=== PATIENT | female | born 1940 | race Caucasian/White ===

== ENCOUNTER 2017-08-08 11:52 | Emergency (ER) | payer MEDICARE ==
--- NOTE | 2017-08-08 13:13 | CT ---
BRAIN CT WITHOUT IV CONTRAST: HISTORY: A 77-year-old female with a history of slurred speech, and neck pain, back pain, and upper leg pain f or several days. COMPARISON: 11/09/2016 FINDINGS: There are stable atrophy and chronic white matter ischemic changes and small punctate right cerebella r lacunar infarct changes. No focal mass or midline shift. No intraaxial or extraaxial hemorrhage. IMPRESSION: Stable atrophy and chronic white matter ischemic changes and old lacunar infarct changes. No masses, bleed, or other acute process. POS: [facility]
[2017-08-08 13:14] LABS: #Eosinphils 0.1 thou/uL (0.0-0.7); #Lymphocytes 0.7 thou/uL (1.20-3.40); #Monocytes 0.6 thou/uL (0.11-0.59); #Neutrophils 5.6 thou/uL (1.40-6.50); %Basophils 0.3 % (0.0-1.0); %Eosinophils 1.8 % (0.0-10.0); %Lymphocytes 9.7 % (21.0-51.0); %Neutrophils 80.2 % (42.0-75.0); Hemoglobin 11.8 g/dL (12.0-16.0); Mean Corpuscular HGB CONC 32.7 g/dL (32.0-36.0); Mean Corpuscular Hemoglobin 32.7 pg (27.0-31.0); Mean Corpuscular Volume 99.9 fl (81.0-99.0); Mean Platelet Volume 8.4 fL (7.4-10.4); Platelet Count 196 thou/uL (130-400); RBC Distribution Width 12.1 % (11.5-14.5); Red Blood Cell (RBC) Count 3.59 mill/uL (4.20-5.40)
--- NOTE | 2017-08-08 13:28 | RAD ---
LUMBAR SPINE 2 VIEWS: HISTORY: A 77-year-old female with a history low back pain, neck pain, and leg pain, body aches, mild slurred speech. FINDINGS: AP and cross-table lateral views of the lumbar spine are performed. There are disk-osteophyte change s, particularly involving the proximal lumbar spine. No evidence for acute fracture dislocation. Th ere are some degenerative changes involving the facet joints. No significant malalignment. No new a cute compression fracture of the lumbar spine. Moderate solid fecal material overlies the lumbar spi ne on the AP view, somewhat obscuring it. IMPRESSION: Spondylosis without acute fracture or dislocation. POS: [facility]
--- NOTE | 2017-08-08 13:28 | RAD ---
STANDARD AP AND LATEARL CERVICAL SPINE: HISTORY: Neck pain. COMPARISON: None. FINDINGS: The open-mouth odontoid view is normal. No acute displaced fracture or malalignment. Large, flowing anterior osteophytes. IMPRESSION: 1. No acute fracture or malalignment. 2. Moderate degenerative changes. POS: [facility]
[2017-08-08 13:31] LABS: ALT (SGPT) 23 U/L (8-55); AST (SGOT) 33 U/L (5-34); Albumin 3.8 g/dL (3.4-4.8); Alkaline Phosphatase 94 U/L (40-150); Anion Gap 10 mmol/L (10-20); BUN (Urea Nitrogen) 12 mg/dL (9.8-20.1); Bilirubin, Total 0.4 mg/dL (0.2-1.2); CK (CPK) 97 U/L (29-168); Calc. Creatinine Clearance 0 mL/min (70-130); Calcium 8.9 mg/dL (7.8-10.44); Carbon Dioxide 25 mmol/L (23-31); Chloride 104 mmol/L (98-107); Estimated GFR-MDRD 68; Globulin 2.6 g/dL (2.4-3.5); Glucose 116 mg/dL (83-110); Protein, Total 6.4 g/dL (6.0-8.3); Sodium 135 mmol/L (136-145)
[2017-08-08 13:32] LABS: CKMB 0.9 ng/mL (0-6.6); Troponin I Less than 0.010 ng/mL (< 0.028)
--- NOTE | 2017-08-08 15:03 | CT ---
CT AORTIC DISSECTION PROTOCOL: Date: 08/08/17 HISTORY: Neck, back, and leg pain. COMPARISON: None. TECHNIQUE: CT angiogram of chest and abdomen performed after the intravenous administration of contrast. 3D rend ering is provided. FINDINGS: Thyroid appears relatively unremarkable. The ascending aorta measures 35 mm. The great vessels are pa tent. No evidence of aneurysm or dissection of the thoracic aorta. Proximal iliac arteries are patent. Evidence of prior cardiac bypass surgery. Celiac trunk and superior mesenteric arteries are patent, as well as the renal arteries. Cholelithias is is present. Mild dilatation of right renal pelvis and proximal right ureter and distal right urete r. The ureterovesical junction is not visualized. There are punctate, nonobstructing left renal calculi. Liver, spleen, and adrenal glands are unremarkable. Small epigastric lymph node is present. Normal ro tation of proximal small bowel. There is an old lower thoracic compression fracture. Bones are mildly osteopenic. There is fusion of right L5 transverse process with the sacrum. Grade I anterolisthesis L4 over L5. The lungs are without focal air space consolidation, pneumothorax, or effusion. IMPRESSION: 1. No evidence of aortic dissection, intramural hematoma, or aneurysmal dilatation. 2. Bilateral renal calculi, with incomplete evaluation of the distal ureters as this is an aortic di ssection protocol. There is mild right-sided hydroureteronephrosis. Distal small obstructing calculus cannot be excluded. A dedicated noncontrast CT of the pelvis may be beneficial. 3. Osteopenia with old lower thoracic compression fracture. 4. Cholelithiasis without cholecystitis. POS: [facility]
[2017-08-08] MEDS ORDERED: Morphine 4 MG/ML VIAL ONE (15:27)
[2017-08-08] MEDS ORDERED: ISOVUE-370 76%-LOCM 1 ML ONE (15:41)
--- NOTE | 2017-09-01 14:45 | EKG ---
Test Reason : Blood Pressure : / mmHG Vent. Rate : 082 BPM Atrial Rate : 082 BPM P-R Int : 186 ms QRS Dur : 116 ms QT Int : 342 ms P-R-T Axes : 033 015 186 degrees QTc Int : 399 ms Normal sinus rhythm Left ventricular hypertrophy with QRS widening and repolarization abnormality Abnormal ECG Confirmed by RADHA MALDONADO, GONZALO ([id number]), digital editor LARISSA KOHLI ([id number]) on 09/01/2017 2:45:22 PM Referred By: Confirmed By:GONZALO GARCIA MD
== END 2017-08-08 15:34 | disposition home or self-care (01) ==
LOC: ERS 11:52
DX: G45.9 Transient cerebral ischemic attack, unspecified (principal); M54.2 Cervicalgia; M54.5 Low back pain; M79.651 Pain in right thigh; M34.9 Systemic sclerosis, unspecified; E78.5 Hyperlipidemia, unspecified; M19.90 Unspecified osteoarthritis, unspecified site; Z79.01 Long term (current) use of anticoagulants; Z79.82 Long term (current) use of aspirin; Z79.899 Other long term (current) drug therapy
CPT/HCPCS: 36415; 70450; 71275; 72040; 72100; 80053; 82553; 84484; 85025; 85379; 93005; 96361; 96374; J2270

== ENCOUNTER 2017-08-13 12:42 | Emergency (ER) | payer MEDICARE | END 2017-08-13 13:15 | disposition home or self-care (01) | LOC: SCSER 12:42 | DX: G89.29 Other chronic pain (principal); M54.5 Low back pain; M54.16 Radiculopathy, lumbar region; E78.5 Hyperlipidemia, unspecified; I95.9 Hypotension, unspecified; Z86.73 Personal history of transient ischemic attack (TIA), and cerebral infarction without residual deficits; Z79.899 Other long term (current) drug therapy; Z79.82 Long term (current) use of aspirin | CPT/HCPCS: 99283 ==

== ENCOUNTER 2017-08-23 06:50 | Day surgery (SDC) | payer MEDICARE ==
[2017-08-22 12:31] VITALS: BMI 25.1
[~2017-08-23 06:50] MED LIST: FLU VACC TS2017-18 (>65YR) 0.5 ML SYRINGE IM ONE
[2017-08-23 07:56] VITALS: BP 102/53; TEMP 97.5
--- NOTE | 2017-08-23 09:39 | RAD ---
LUMBAR SPINE MYELOGRAM: Date: 08-23-17 History: Spondylolisthesis and radiculopathy. FINDINGS: Informed consent for lumbar spine myelogram obtained prior to the procedure. Pre-procedural substation operator automatic imaging demonstrates anterior wedge compression deformity of L1, likely chronic in nature. There is anterior osteophyte formation at T12-L1, L1-2, and L2-3. There is multilevel lowe r lumbar spine facet hypertrophic change. Frontal imaging demonstrates lateral osteophyte formation a t L1-2 and a transitional L5 vertebral body which is partially sacralized on the right. Cholelithiasi s noted as well. The patient was placed on the fluoroscopic table in the oblique prone position and skin overlying the lower lumbar spine was prepped and draped in normal sterile fashion. With intermittent fluoroscopic guidance, a 22 gauge spinal needle was advanced into the thecal sac at the L3-4 level and removal of the stylet yields clear cerebral spinal fluid. Subsequently, approximately 12 cc of Isovue 200 was in jected, outline nerve roots of the cauda equina and opacifying the thecal sac. There is a small amoun t of epidural contrast media as well. Patient tolerated the procedure well and was sent to the CT scanner for CT myelogram of the lumbar sp ine. Exposure date: 0.9 minutes of fluoroscopic time, 352.1 mGy*m^2. IMPRESSION: Successful lumbar spine myelogram. CT myelogram lumbar spine to follow. POS: [facility]
--- NOTE | 2017-08-23 09:52 | CT ---
CT MYELOGRAM OF THE LUMBAR SPINE: DATE: 08/23/17. History Radiculopathy and anterolisthesis. TECHNIQUE: Serial axial CT imaging is obtained at 2.5 mm intervals through the lumbar spine with intrathecal con trast media. Coronal and sagittal reformatted imaging obtained. FINDINGS: Increased linear interstitial densities are noted within the imaged lung bases, nonspecific. Numerous small gallstones are noted within the gallbladder lumen. There are multiple subcentimeter n onobstructing stones within both kidneys. There is scattered atherosclerotic calcification of the ab dominal aorta and its branches. There is mild anterolisthesis of L4 on L5 measuring in the 4 mm range. At the T11 level, there is an terior wedge compression fracture with approximately 40% loss of vertebral body height anteriorly, li osmel chronic in nature. Conus medullaris terminates at the T12-L1 level. T12-L1: Mild anterior osteophyte formation and bilateral facet hypertrophy with no central canal or neural foraminal stenosis. L1-2: Minimal disk bulge with no central canal stenosis. Mild bilateral facet hypertrophy with no s ignificant neural foraminal stenosis. L2-3: There is anterior osteophyte formation and minimal disk bulge with no significant central poli l or neural foraminal stenosis. Mild bilateral facet hypertrophy. L3-4: There is mild disk bulge. There is moderate bilateral facet hypertrophy and hypertrophy of th e ligamentum flavum with mild bilateral neural foraminal stenosis and mild central canal stenosis. L4-5: There is moderate bilateral facet hypertrophy with mild to moderate bilateral neural foraminal stenosis. There is mild central canal stenosis. L5-S1: There is bilateral facet hypertrophy with mild bilateral neural foraminal stenosis. No signi ficant central canal stenosis. There is no worrisome lytic or blastic bone lesion. No acute fracture or dislocation. IMPRESSION: 1. Relatively mild degenerative change noted within the lumbar spine, primarily affecting the facet joints of the lower lumbar spine. No evidence for significant central canal stenosis. There is mild central canal stenosis at L3-4. Mild scattered areas of neural foraminal stenosis as detailed above . 2. Cholelithiasis. 3. Bilateral nonobstructing renal calculi. POS: [facility]
[2017-08-23] MEDS ORDERED: Iopamidol-M 200 41% 20 ML VIAL ONE (15:21)
== END 2017-08-23 09:50 | disposition home or self-care (01) ==
LOC: RAD 06:50
PROVIDERS: ATTEND Family Medicine
PROC: B00B1ZZ Plain Radiography of Spinal Cord using Low Osmolar Contrast (ICD-10-PCS; principal; 2017-08-23)
DX: M43.16 Spondylolisthesis, lumbar region (principal); M54.16 Radiculopathy, lumbar region; I25.10 Atherosclerotic heart disease of native coronary artery without angina pectoris; G43.909 Migraine, unspecified, not intractable, without status migrainosus; K21.9 Gastro-esophageal reflux disease without esophagitis; Z91.011 Allergy to milk products; Z88.8 Allergy status to other drugs, medicaments and biological substances; Z74.09 Other reduced mobility; Z79.01 Long term (current) use of anticoagulants; Z79.899 Other long term (current) drug therapy; Z98.890 Other specified postprocedural states
CPT/HCPCS: 62304; 72132

== ENCOUNTER 2018-04-06 14:59 | Observation (INO) | payer MEDICARE ==
[2018-04-06 15:23] LABS: #Lymphocytes 0.5 thou/uL (1.20-3.40); #Monocytes 0.4 thou/uL (0.11-0.59); #Neutrophils 4.5 thou/uL (1.40-6.50); %Basophils 0.6 % (0.0-1.0); %Eosinophils 0.8 % (0.0-10.0); %Lymphocytes 8.3 % (21.0-51.0); %Monocytes 6.9 % (0.0-10.0); %Neutrophils 83.4 % (42.0-75.0); Hemoglobin 12.1 g/dL (12.0-16.0); Mean Corpuscular HGB CONC 33.2 g/dL (32.0-36.0); Mean Corpuscular Volume 96.5 fL (78.0-98.0); Mean Platelet Volume 8.4 fL (7.4-10.4); Platelet Count 168 thou/uL (130-400); Red Blood Cell (RBC) Count 3.78 mill/uL (4.20-5.40); White Blood Cell (WBC) Count 5.4 thou/uL (4.8-10.8)
[2018-04-06 15:32] LABS: Prothrombin Time 39.1 SEC (12.0-14.7)
--- NOTE | 2018-04-06 15:34 | CT ---
NONCONTRAST CT HEAD: Date: 04-06-18 History: Right sided weakness and slurred speech. FINDINGS: Again noted are scattered areas of diminished attenuation of periventricular white matter which are n onspecific but likely attributable to chronic small vessel ischemic changes. Remote lacunar infarct o f the anterior limb right internal capsule is again seen. There is a remote lacunar infarction also a gain seen in the region of the body of the right caudate. No acute cortical infarction, hemorrhage, m ass effect, or midline shift is seen. Small remote infarction in the right cerebellar hemisphere is p resent. There is mild cerebral volume loss. Ventricular system is noted in size, shape, and position for the degree of sulcal atrophy. There has been no significant interval change from prior exam. IMPRESSION: 1. No acute intracranial abnormalities demonstrated. 2. Chronic small vessel ischemic changes and lacunar infarctions as described above. POS: [facility]
[2018-04-06 15:38] LABS: ALT (SGPT) 16 U/L (8-55); AST (SGOT) 27 U/L (5-34); Albumin 4.1 g/dL (3.4-4.8); Alkaline Phosphatase 52 U/L (40-150); Anion Gap 9 mmol/L (10-20); BUN (Urea Nitrogen) 13 mg/dL (9.8-20.1); Bilirubin, Total 0.3 mg/dL (0.2-1.2); CK (CPK) 64 U/L (29-168); Calc. Creatinine Clearance 0 mL/min (70-130); Calcium 9.2 mg/dL (7.8-10.44); Carbon Dioxide 25 mmol/L (23-31); Chloride 104 mmol/L (98-107); Estimated GFR-MDRD 65; Globulin 2.5 g/dL (2.4-3.5); Glucose 117 mg/dL (83-110); Potassium 3.8 mmol/L (3.5-5.1); Protein, Total 6.6 g/dL (6.0-8.3); Sodium 134 mmol/L (136-145)
[2018-04-06 15:41] LABS: CKMB 0.9 ng/mL (0-6.6)
--- NOTE | 2018-04-06 15:55 | CT ---
HEAD CTA WITH 3D RENDERING NECK CTA WITH 3D RENDERING: Date: 04/06/18 HISTORY: 77-year-old female, stroke alert, right-sided weakness and slurred speech. FINDINGS: HEAD CTA: The right vertebral artery is a somewhat dominant vertebral artery. The basilar artery and posterior cerebral arteries appear unremarkable. There are some calcified plaques in the right and left intracr anial internal carotid arteries, but without significant stenosis, using NASCET criteria. The middle cerebral arteries demonstrate no evidence for significant stenosis. Anterior cerebral arteries appear unremarkable. IMPRESSION: Some atherosclerotic calcific changes within the intracranial internal carotid arteries without evide nce for hemodynamically significant stenosis. Right and left middle cerebral arteries show no evidenc e for significant stenosis. NECK CTA: There is a fairly large calcified plaque at the origin of the right subclavian artery, with some mild to moderate narrowing, as well as some minimal kinking at this level. This does not appear to repres ent a significant high grade stenosis per NASCET criteria. The origins of the right and left vertebra l arteries appear unremarkable. The right vertebral artery is a dominant vertebral artery. Common, in ternal, and external carotid arteries demonstrate no evidence for significant plaque or hemodynamical ly significant stenosis. IMPRESSION: No carotid hemodynamically significant stenosis. Mild to moderate stenosis at a large calcified plaqu e at the origin of the right subclavian artery using NASCET criteria. Findings discussed with Dr. Holder at 1535 hours. CODE CR. POS: [facility]
--- NOTE | 2018-04-06 16:19 | RAD ---
SINGLE VIEW OF THE CHEST: Comparison: 11-09-16 History: Dysarthria, slurred speech. FINDINGS: Single view of the chest shows a normal sized cardiomediastinal silhouette with atherosclerotic calci fications in the aorta. The patient is status post sternotomy. Increased interstitial markings are pr esent. There is no evidence of consolidation, mass, or pleural effusion. IMPRESSION: No evidence of acute cardiopulmonary disease. POS: [facility]
[2018-04-06] MEDS ORDERED: ISOVUE-370 76%-LOCM 1 ML ONE (16:22)
[2018-04-06] MEDS ORDERED: Acetaminophen 500 MG TAB ONE (20:48)
[2018-04-06] MEDS ORDERED: Acetaminophen 325 MG TAB PO PRN (21:32)
[2018-04-06] MEDS ORDERED: Famotidine 20 MG TAB PO SCH (21:32)
[2018-04-06] MEDS ORDERED: Digoxin 0.125 MG TAB PO SCH (22:00)
[2018-04-06] MEDS: Digoxin 0.125 MG TAB PO SCH (23:20)
[2018-04-07 00:30] VITALS: BMI 24.3
--- NOTE | 2018-04-07 02:01 | HP ---
PRIMARY CARE PHYSICIAN: Dr. Swati Nolan. CHIEF COMPLAINT: Both legs giving out on her and arms not acting right. HISTORY OF PRESENT ILLNESS: Ms. King is a very pleasant 77-year-old female that has a history of s cleroderma as well as pulmonary fibrosis. She also has an aortic valve replacement. She was in her usual state of health until earlier today. She says that she was folding laundry when suddenly her l egs got extremely weak like they could not hold her up and she says her arms felt weak and pus, they did not do what she wanted them to do. She says that this lasted for several hours and then her voic e also got weak and her voice was slurred. She says the problems with her voice and slurred speech l asted much longer. She says she was worried about this particular episode because before it was prim arily her legs getting weak, but this time the voice was affected too. She also was having some diff iculty with feeling some cough and congestion, but she associates that with her being sick. She was also concerned because these episodes, which she calls TIAs have become more frequent. Usual ly, she would only have one year or so, but lately she has had an episode in May, June, July , August, and October. They seem to be becoming more frequent. She denies having any chest pain or shor tness of breath, but she did admit to feeling some palpitations or she calls hard heartbeats a few da ys ago, which she stated was unusual. Currently, the patient is back to her normal self and denies a ny current weakness or symptoms at this time. REVIEW OF SYSTEMS: With regard to the review of systems, all systems were reviewed and are negative except for that mentioned in history of present illness. PAST MEDICAL HISTORY: Significant for scleroderma as well as pulmonary fibrosis, gastroesophageal re flux disease, osteoarthritis, coronary artery disease, previous TIA. She also says she had a blood i nfection. It sounds like bacteremia due to Strep bovis and Strep was sounds like Pasteurella this wa s about 5 years ago. She says she did not have endocarditis that she is aware of. PAST SURGICAL HISTORY: She has had an appendectomy in the 1940s, hysterectomy in the , and the aortic valve replacement with a mechanical valve in 1999, bilateral cataract surgery. ALLERGIES: CRESTOR, ZETIA and DAIRY and SOY. SOCIAL HISTORY: She is . She is a nonsmoker, nondrinker and she would like to be a FULL CODE . FAMILY HISTORY: Significant for cerebrovascular accident in her grandfather as well as cancer and ma cular degeneration. CURRENT MEDICATIONS: These are taken from the emergency room records and these include citalopram 20 mg daily, Coumadin 5 mg daily, digoxin 0.125 mcg twice a day, fenofibrate 48 mg daily, pravastatin 2 0 mg a day, cyclobenzaprine 10 mg as needed, Nexium 40 mg daily, metoprolol extended-release 25 mg t wice a day, and Nitro-Dur 0.3 mg daily. PHYSICAL EXAMINATION: GENERAL: She is alert and oriented. She appears to be in no acute distress. She is well developed and well nourished. VITAL SIGNS: Blood pressure was 133/58, heart rate 91, respiratory rate of 18, temperature was 98.1. HEENT: Pupils are equal, round, and reactive. Extraocular muscles are intact. Her sclerae anicteri c. Tympanic membranes in the ear exam, the external canal was normal on both sides; however, on the right, she had a perforated eardrum on the left. The tympanic membrane was intact. There was no spe cific lesions, no redness. Throat: There is no erythema, no exudates. The uvula is midline. NECK: She did have some thickening of the skin around the neck. There was no evidence of any bruits . LUNGS: Clear to auscultation except for some dry crackles at the base of the left seem to be greater than the right and a mild expiratory wheeze, no rhonchi. CARDIOVASCULAR: She had a normal S1 and S2. I did not appreciate any S3 or S4. No murmurs; however , she did have the sound of the clicking of the mechanical valve. ABDOMEN: Soft, it is nontender, nondistended. Positive for bowel sounds. There is no rebound, no g uarding. EXTREMITIES: She has slight edema in the left lower leg as compared to the right, but there is no ca lf tenderness. No palpable cord. She has palpable dorsalis pedis pulses bilaterally. NEUROLOGIC: Her cranial nerves II through XII are grossly intact. Her muscle strength is 5/5 in bot h her upper and lower extremities. Reflexes were reactive and symmetric. SKIN AND INTEGUMENT: She did have the lack of the skin folds at the nail bed on her hands bilaterall y. There was no pitting at the nail bases, however. No ulcerative lesions on her feet. Her dorsali s pedis pulses were palpable, and there was no significant rash. No oral lesions and no evidence of any alopecia. LABORATORY RESULTS: White blood cell count 5.4, hemoglobin 12.1, hematocrit is 36.5, platelet count is 168. INR was 4.0. Sodium 134, potassium 3.8, chloride is 104, CO2 is 25, BUN of 13, creatinine 0 .85, glucose is 117. Troponin was 0.020. She had a CT scan of the brain which was negative for any acute intracranial process. There was some chronic small vessel disease noted. She had a chest x-ra y, which was read by me it looks like, her heart size was normal. There was some evidence of some in terstitial infiltrates. Her EKG is sinus rhythm, the rate is 91. She did have some voltage criteria for LVH and what appears to be some repolarization abnormalities in lead 1, 2, V5, and V6. This is by my reading. The serum sodium is 134, potassium 3.8, chloride is 104, CO2 is 25, BUN of 13, creati nine 0.85, glucose is 117. White blood cell count 5.4, hemoglobin 12.1, hematocrit is 36.5, platelet count is [address] angiogram of the brain and [place] of [place]. Notably, there was no ca rotid artery stenosis, but there was significant plaque and stenosis at the right subclavian artery. ASSESSMENT AND PLAN: This is a pleasant 77-year-old female that presents with sudden onset of neurol ogical symptoms while she was folding clothes. She also has history of having recurrent transient is chemic attacks, which she says seems to be becoming more frequent. For this reason, she will be plac ed in observation, given her findings on the CT angiogram with regards to the subclavian stenosis. W devan will have Vascular Surgery to evaluate her to see if this could be producing a subclavian steal-lik e syndrome. We will also get carotid Dopplers to see if she has any retrograde flow in the carotids or vertebral arteries. We will also check lipid panel and monitor her for signs of atrial fibrillati on and get an echocardiogram. 1. With regards to her scleroderma, this will be treated symptomatically. She appears to have evelin l renal function and it appears as if the pulmonary fibrosis is stable. 2. Aortic valve replacement and chronic anticoagulation. Her INR is a slightly supratherapeutic. W e will monitor INRs, we will hold the Coumadin for this evening to see where her INR is tomorrow and treat accordingly. Otherwise, further recommendations are to follow.
[2018-04-07 05:13] LABS: INR-International Normal Ratio 3.5
[2018-04-07 05:31] LABS: Anion Gap 11 mmol/L (10-20); BUN (Urea Nitrogen) 13 mg/dL (9.8-20.1); Calc. Creatinine Clearance 60 mL/min (70-130); Calcium 9.1 mg/dL (7.8-10.44); Carbon Dioxide 24 mmol/L (23-31); Cardiac Risk 2.8 (Less than 4.5); Chloride 109 mmol/L (98-107); Cholesterol 142 mg/dl (< 200 Desired); Estimated GFR-MDRD 73; Glucose 96 mg/dL (83-110); HDL Cholesterol 50 mg/dL (>60 Neg Risk); LDL Cholesterol, Calculated 73 mg/dL; Potassium 3.6 mmol/L (3.5-5.1); Sodium 140 mmol/L (136-145); Triglycerides 94 mg/dL (Less than 150)
[2018-04-07 05:48] LABS: Band 8 % (5-11); Eosinophils 1 % (0-10); Hemoglobin 12.1 g/dL (12.0-16.0); Lymphocytes 24 % (21-51); MDiff Complete? YES; Mean Corpuscular HGB CONC 32.7 g/dL (32.0-36.0); Mean Corpuscular Hemoglobin 31.8 pg (27.0-31.0); Mean Platelet Volume 8.8 fL (7.4-10.4); Monocytes 10 % (0-10); Neutrophil 57 % (42-75); Platelet Count 162 thou/uL (130-400); Red Blood Cell (RBC) Count 3.83 mill/uL (4.20-5.40); White Blood Cell (WBC) Count 2.7 thou/uL (4.8-10.8)
--- NOTE | 2018-04-07 08:22 | ULT ---
CAROTID DOPPLER ULTRASOUND: Date: 04/07/18 HISTORY: TIA. COMPARISON: Ultrasound from 2017. TECHNIQUE: Real-time Pro scale, color Doppler, and spectral analysis of the extracranial carotid and vertebral arteries performed. FINDINGS: Minimal calcific plaque. No elevated peak systolic velocities within the internal carotid arteries. A ntegrade flow both vertebral arteries. Right ICA/CCA ratio is 0.70. Left ICA?CCA ratio is 0.70. IMPRESSION: No hemodynamically significant stenosis. POS: [facility]
[2018-04-07] MEDS ORDERED: Aspirin 81 mg Enteric Coated Tablet PO SCH (09:00)
[2018-04-07] MEDS ORDERED: Famotidine 20 MG TAB PO SCH (09:00)
[2018-04-07] MEDS: Digoxin 0.125 MG TAB PO SCH (09:40)
--- NOTE | 2018-04-07 10:19 | CON ---
DATE OF CONSULTATION: 04/07/2018 CONSULTING PHYSICIAN: Hospitalist Service. IMPRESSION: Generalized weakness suggestive more of either hypotensive or bradycardic episode. PLAN: 1. Monitor orthostatic blood pressures. 2. Consider referral to Cardiology for a prolonged EKG monitoring. Ms. King is a 77-year-old white female with a past history of aortic valve replacement, on chronic Coumadin therapy. She was at home when she began feeling generally weak on both sides. There was no facial droop, but she reported that it felt like her speech was a bit slurred. There is no associat ed headache, nausea, vomiting, vertigo, chest pain, palpitations, or shortness of breath. They murray d for EMS to bring her into the hospital. After lying down, she could not tell whether there was any residual weakness. Her son is indeterminate how long she had symptoms. She had a CT scan of the br ain done, which was unremarkable for any evidence of hemorrhage. There is some chronic small vessel ischemic changes present. CTA did not show any significant stenosis in either the carotids or intrac ranial vessels. She has had a carotid ultrasound, which again showed no carotid stenosis. Since adm ission, she has not had any further episodes. She had a blood pressure 122/56 and pulse of 75. She reports that she was recently started on blood pressure medication, which was a new problem for her. PAST MEDICAL HISTORY: Scleroderma, macular degeneration, aortic valve disease. MEDICATION LIST: Included Coumadin and Lanoxin. She has been started on aspirin. SOCIAL HISTORY: No tobacco or alcohol use. FAMILY HISTORY: Noncontributory. REVIEW OF SYSTEMS: No complaints of any focal neurologic symptoms. PHYSICAL EXAMINATION: GENERAL: She is a petite, frail, elderly lady. VITAL SIGNS: Blood pressure 122/56, pulse 75, respirations 14, temperature 98.3. HEENT: Pupils equal and reactive. Conjunctivae clear. Oropharynx clear. NECK: Supple, no lymphadenopathy. EXTREMITIES: No cyanosis, clubbing, or edema. NEUROLOGIC EXAM: She is alert and appropriate. Her speech is fluent and clear. Cranial nerves II-X II are intact. Motor exam showed symmetric strength that was full bilaterally. She could stand and walk independently. Her sensation was intact to light touch. Reflexes were 2+ and symmetric. No tr emor or dysmetria was present. EKG shows a sinus rhythm. SUMMARY: This is an elderly lady, who had some generalized weakness. She is already anticoagulated. I doubt that her symptoms are related to an ischemic event. Her INR is 4.0. Therefore, she is ful ly therapeutic. I do not see any suggestive evidence of a stroke. Monitor blood pressure and pulse to see if there may be an underlying cardiovascular cause for this episode.
--- NOTE | 2018-04-07 12:24 | PDOC.PN ---
- Subjective Encounter Start Date: 04/07/18 Encounter Start Time: 10:10 Ms. King was seen today in follow-up of sudden generalized weakness. She says that she feels "great" today. She denies any weakness. Her speech is back to normal. - Objective Resuscitation Status: Resuscitation Status FULL:Full Resuscitation MAR Reviewed: Yes Vital Signs & Weight: Vital Signs (12 hours) Temp Pulse Resp BP Pulse Ox 04/07/18 12:00 97.6 F 93 16 140/62 94 L 04/07/18 09:40 96 04/07/18 08:00 97.5 F L 92 18 147/67 H 98 04/07/18 03:18 98.3 F 75 14 122/56 L Weight Weight 137 lb Result Diagrams: 04/07/18 04:26 04/07/18 04:26 Additional Labs: Accuchecks 04/06/18 15:03 POC Glucose 116 H Phys Exam - Physical Examination HEENT: PERRLA Respiratory: no wheezing, no rales, no rhonchi, clear to auscultation bilateral Cardiovascular: RRR, no significant murmur, no rub Gastrointestinal: soft, non-tender, no distention, positive bowel sounds Musculoskeletal: pulses present, edema present trace pedal edema around both ankles Neurological: non-focal, normal sensation, moves all 4 limbs Dx/Plan (1) Generalized weakness Code(s): R53.1 - WEAKNESS Status: Acute (2) Scleroderma Code(s): M34.9 - SYSTEMIC SCLEROSIS, UNSPECIFIED Status: Chronic (3) Chronic anticoagulation Code(s): Z79.01 - NURSING HOME (CURRENT) USE OF ANTICOAGULANTS Status: Chronic (4) History of aortic valve replacement Code(s): Z95.2 - PRESENCE OF PROSTHETIC HEART VALVE Status: Chronic - Plan * Generalized weakness and slurred speech. ? etiology, discussed with Dr. Rao. This could be due to a hypotensive event from the recent start of an antihypertensive medication- will check Orthostatics * Subclavian Stenosis- CV surgery consult noted- this is not contributing to her present condition- and will not require any further work-up/ treatment * Scleroderma- stable * Home later If Echo is unchanged.
[2018-04-07 16:16] VITALS: BP 128/60; TEMP 98.2
[2018-04-07] MEDS ORDERED: Warfarin Sodium 5 MG TAB PO SCH (17:00)
--- NOTE | 2018-04-07 23:20 | CON ---
DATE OF CONSULTATION: 04/07/2018 REQUESTING PHYSICIAN: Reddy Mendez M.D. CHIEF COMPLAINT: Dysarthria. HISTORY OF PRESENT ILLNESS: The patient is a 77-year-old woman who is on Coumadin because of mechani elizabeth valve replacement. She apparently has had several episodes of dysarthria that she describes as " thick tongued speech," but she presented this hospitalization with an episode that was associated wit h generalized weakness. Different examiners have gotten different descriptions of her weakness, one describing left-sided weakness, one describing right-sided weakness. To me, she described that both legs and then both arms became weak and that family and her equipment technician had to help her because she w as just simply too weak to stand up. That dysarthria lasted for a few hours and when I saw her this morning, she was back to normal. She denies any eye symptoms or any lateralizing extremity symptoms. PAST MEDICAL HISTORY: Also significant for scleroderma with pulmonary fibrosis and GE reflux disease . PAST SURGICAL HISTORY: She has had an appendectomy, a hysterectomy, a mechanical aortic valve replac ement and a cataract surgery. HOME MEDICATIONS: Citalopram, Coumadin, digoxin, fenofibrate, pravastatin, cyclobenzaprine, Nexium, Toprol XL. ALLERGIES: She reports allergies or intolerances to CRESTOR, ZETIA, DAIRY and SOY. SOCIAL HISTORY: The patient does not smoke. FAMILY HISTORY: Significant for one of her grandfathers having had a stroke. REVIEW OF SYSTEMS: Negative for any TIA symptoms other than the aforementioned dysarthria, is negati ve for any palpitations. PHYSICAL EXAMINATION: GENERAL: She appears her stated age, is comfortable, is awake and alert and appropriate. VITAL SIGNS: She stands 5 feet 3 inches, weighs 137 pounds, heart rate is 92, blood pressure 147/67, temperature is 97.5, room air O2 sats are 98%. EXTREMITIES: She has a palpable and symmetric radial, dorsalis pedis and posterior tibial pulses. NEUROLOGIC: Cranial nerves II-XII are grossly intact as is upper and lower extremity strength. DIAGNOSTIC DATA: Her chest x-ray shows sternal wires and aortic knob calcification. Laboratory exam shows a white count of 5.4, hemoglobin 12.1, platelets 168,000. PT was 39.1 with an INR of 4.0. Th is morning, the INR is down to 3.5. Electrolytes were normal except for minimally low sodium at 134. Glucose is 117, BUN 13, creatinine 0.85, calcium is 9.2. LFTs were normal. Albumin is 4.1. CT sc anning of the brain showed some lacunar infarcts and small vessel disease, but no acute changes. CTA of the brain and cervical carotids showed nearly pristine, but tortuous carotids with some calcified plaque at the origin of the right subclavian artery without any significant obstruction. Carotid ul trasonography showed minimal plaque in the carotids with normal velocities and ratios. Normal wavefo adelfo. ASSESSMENT AND PLAN: Left hemispheric transient ischemic attack with normal thoracic and cervical ca rotids. I do not think that the plaque in her right subclavian artery is anything other than a coinc idental finding and certainly is not responsible for these symptoms.
--- NOTE | 2018-04-08 03:37 | DIS ---
PRIMARY CARE PHYSICIAN: Dr. Nolan. DATE OF ADMISSION: 04/06/2018 DATE OF DISCHARGE: 04/07/2018 DISCHARGE DISPOSITION: Home. PRIMARY DISCHARGE DIAGNOSES: 1. Sudden generalized weakness. 2. Scleroderma. 3. Status post aortic valve replacement. 4. Chronic anticoagulation. 5. Coronary artery disease. 6. Gastroesophageal reflux disease. DISCHARGE MEDICATIONS: These are the same as on admission and include Coumadin 5 mg daily, pravastat in 20 mg at bedtime, multivitamin once a day, metoprolol succinate 12.5 mg twice a day, fenofibrate 4 8 mg daily, estazolam 1 mg at bedtime, Nexium 40 mg daily, digoxin 125 mcg twice a day, Flexeril 10 m g t.i.d. as needed, Celexa 20 mg daily, vitamin D3 of 1000 units daily, calcium carbonate 1200 mg shamir ly, aspirin 81 mg a day. PROCEDURES DONE DURING ADMISSION: The patient had a CT scan of the brain, which was negative for any acute intracranial abnormalities. There were some chronic small vessel ischemic changes and lacunar infarcts as described. The patient had a CT angiogram of the [place] and of the neck. The re was no carotid stenosis. There was some mild to moderate stenosis and a large calcified plaque at the origin of the subclavian artery. The patient had bilateral carotid Dopplers, which was negative . The patient had an echocardiogram, which was pending at the time of discharge. ALLERGIES: MILK CONTAINING PRODUCTS, CRESTOR and ZETIA. HOSPITAL COURSE: Ms. King is a pleasant 77-year-old female, who presented to the emergency room af ter having a sudden onset of weakness in both upper and lower extremities as well as some slurred spe ech. She said this is very similar to previous TIAs, which she has had in the past with the exceptio n of the extremity weakness. However, her , who came later to the hospital, says that the ext remity weakness is a characteristic of her previous TIAs. She was placed in observation and she unde rwent carotid Doppler which was negative and showed anterior grade flow in the vertebral arteries. V ascular Surgery was consulted due to the stenosis of the subclavian artery. This was felt to not req uire any further investigation or treatment. She was also seen by her neurologist and her symptoms d id not seem consistent with a TIA in his opinion and felt that it could be some type of cardiac media katrin event. I discussed this with the patient and offered to have her stay over one more night to see the dough molder hand; however, she felt like she preferred to see her primary dough molder hand, Dr. San, wh o was not bone char puller this weekend and will call her office on Tuesday and follow up with the echo report as well as any additional cardiac workup if necessary. Since no significant abnormalities were found during this hospital stay, we will continue her on her same medications with no changes.
== END 2018-04-07 17:20 | disposition home or self-care (01) ==
LOC: ERS 14:59 → ERHOLD 17:44 → 2SE 21:17
PROVIDERS: ADMIT Internal Medicine; ATTEND Internal Medicine
DX: R53.1 Weakness (principal); R47.1 Dysarthria and anarthria; M34.9 Systemic sclerosis, unspecified; J84.10 Pulmonary fibrosis, unspecified; K21.9 Gastro-esophageal reflux disease without esophagitis; M19.90 Unspecified osteoarthritis, unspecified site; I25.10 Atherosclerotic heart disease of native coronary artery without angina pectoris; R79.1 Abnormal coagulation profile; Z86.73 Personal history of transient ischemic attack (TIA), and cerebral infarction without residual deficits; Z79.01 Long term (current) use of anticoagulants; Z79.899 Other long term (current) drug therapy; Z88.8 Allergy status to other drugs, medicaments and biological substances; Z91.011 Allergy to milk products; Z91.018 Allergy to other foods; Z95.2 Presence of prosthetic heart valve
CPT/HCPCS: 70450; 70496; 70498; 71045; 80048; 80053; 80061; 82550; 82553; 82962; 84484; 85025 ×2; 85610 ×2; 85730; 93005; 93306; 93880; 99285; G0378 ×2; 36415; 36416

== ENCOUNTER 2019-01-25 12:24 | Day surgery (SDC) | payer MEDICARE, OTHER ==
[2019-01-24 14:33] VITALS: BMI 24.3
[~2019-01-25 12:24] MED LIST changes: +Dexamethasone 20 MG/5 ML VIAL ONE; -FLU VACC TS2017-18 (>65YR) 0.5 ML SYRINGE IM ONE; +Lidocaine 1% PF 5 ML VIAL ONE; +Metoclopramide HCl 10 MG/2 ML VIAL ONE; +Ondansetron PF 4 MG/2 ML Vial ONE; +PROPOFOL 200 MG/20 ML VIAL ONE
[2019-01-25] MEDS ORDERED: Oxymetazoline HCl 0.05% ( 15 ML ) ONE (14:17)
[2019-01-25 14:27] LABS: Hemoglobin 12.8 g/dL (12.0-16.0); Mean Corpuscular HGB CONC 34.6 g/dL (32.0-36.0); Mean Corpuscular Hemoglobin 33.8 pg (27.0-31.0); Mean Corpuscular Volume 97.5 fL (78.0-98.0); Mean Platelet Volume 8.7 fL (7.4-10.4); Platelet Count 158 thou/uL (130-400); RBC Distribution Width 11.6 % (11.5-14.5); Red Blood Cell (RBC) Count 3.79 mill/uL (4.20-5.40); White Blood Cell (WBC) Count 4.8 thou/uL (4.8-10.8)
[2019-01-25 14:36] LABS: INR-International Normal Ratio 1.2; PTT 42.2 SEC (22.9-36.1); Prothrombin Time 14.7 SEC (12.0-14.7)
[2019-01-25 14:48] LABS: Anion Gap 12 mmol/L (10-20); BUN (Urea Nitrogen) 18 mg/dL (9.8-20.1); Calc. Creatinine Clearance 46 mL/min (70-130); Calcium 9.2 mg/dL (7.8-10.44); Carbon Dioxide 26 mmol/L (23-31); Chloride 106 mmol/L (98-107); Estimated GFR-MDRD 54; Glucose 94 mg/dL (83-110); Sodium 140 mmol/L (136-145)
[2019-01-25] MEDS ORDERED: Lidocaine 1% w/Epinephrine 1:100K 20 ML VIAL ONE (16:51)
[2019-01-25] MEDS ORDERED: Bacitracin Zinc Ointment 30 gm TUBE ONE (16:51)
[2019-01-25] MEDS ORDERED: Famotidine/PF 20 mg/2ml Vial ONE (17:25)
[2019-01-25] MEDS ORDERED: Fentanyl 100 MCG/2 ML VIAL ONE (17:25)
--- NOTE | 2019-01-26 08:27 | OP ---
DATE OF PROCEDURE: 01/25/2019 PREOPERATIVE DIAGNOSES: Profound septal deformity, hypertrophic inferior turbinates. POSTOPERATIVE DIAGNOSES: Profound septal deformity, hypertrophic inferior turbinates. PROCEDURES PERFORMED: 1. Septoplasty. 2. Bilateral nasal endoscopy with submucosal resection of inferior turbinates. DESCRIPTION OF OPERATION: After consent was obtained, the patient was identified, brought to the operating room, and placed on the operating room table in the supine position. Consent was obtained, notifying the patient of the possibility of additional infections, bleeding, brain injury, and eye/orbital injury. The patient was placed on the operating room table, and general endotracheal anesthesia and intravenous access was obtained. The patient was then positioned, prepped and draped for endoscopic sinus surgery. Nasal preparation included trimming nasal vestibular hairs and spraying in topical Afrin. We then placed Afrin topical solution on nasal pledgets and strategically located them intranasally. The perinasal mucosa was injected with 1% lidocaine with 1:100,000 epinephrine in the submucoperichondrial plane of the septum, lateral nasal wall, and anterior to the uncinate. The patient was then prepped and draped in a sterile fashion and positioned for endoscopic sinus surgery. SEPTOPLASTY: After local anesthesia was infiltrated into the submucoperichondrial plane, a standard Joshua incision was made with a #15 blade down to the level of the septal cartilage. The caudal elevator was used to elevate the mucoperichondrium from the underlying cartilage. We then proceeded beyond the bony cartilaginous junction and elevated the bony periosteum as well. Great attention was paid to the spur to prevent rent formation in the septal flap. A transcartilaginous incision was then made, while preserving an adequate dorsal and caudal cartilaginous strut for tip support. The deformed cartilage was removed and disarticulated from the bony cartilaginous junction and maxillary crest. This was placed in saline and would later be crushed and returned to the mucoperichondrial envelope. We then elevated the contralateral periosteum from the bony cartilaginous region and removed the deformed portions of the bone and bony spurs. The cartilage was then crushed and placed back into the mucoperichondrial envelope and the mucosa was re-approximated with a quilting stitch composed of rapidly absorbent gut suture. The Joshua incision was also closed with interrupted gut suture. At the completion of the case, Heard splints were placed and suture secured to the caudal septum. BILATERAL NASAL ENDOSCOPY WITH SUBMUCOSAL RESECTION OF INFERIOR TURBINATES: With the 0-degree endoscope, the patient underwent systematic nasal endoscopy. There were no suspicious internasal masses or lesions identified. We then focused our attention to the osteomeatal complex region under the middle turbinate. The inferior turbinates were visualized with a 0 degree endoscope and outfractured with a [place] elevator. The inferior medial aspect was cauterized with the electrocautery. Hemostasis was obtained . After adequate airway was established, we turned our attention to the contralateral side and used a similar procedure. Again, a [place] elevator was used to outfracture inferior turbinates under endoscopic visualization. With a suction cautery, the free inferior medial aspect was cauterized under direct visualization along the length of the inferior turbinate. At this point, we then turned our attention to the contralateral side and proceeded with endoscopic sinus surgery. At the completion of the case, [place] keel splints were placed in the ethmoid cavities after the ethmoidectomy. There were no complications. The patient tolerated the procedure well and was discharged to the recovery room in stable condition prior to return to the preoperative day stay with ultimate discharge home. Prescriptions for pain medication and antibiotics were provided. The patient received intramuscular Depo-Medrol during the case. Job ID: [id number]
== END 2019-01-25 20:35 | disposition home or self-care (01) ==
LOC: SDC 12:24
PROVIDERS: ATTEND Specialist
PROC: 09BM4ZZ Excision of Nasal Septum, Percutaneous Endoscopic Approach (ICD-10-PCS; principal; 2019-01-25)
PROC: 09TL8ZZ Resection of Nasal Turbinate, Via Natural or Artificial Opening Endoscopic (ICD-10-PCS; 2019-01-25)
DX: J34.2 Deviated nasal septum (principal); J34.3 Hypertrophy of nasal turbinates; K21.9 Gastro-esophageal reflux disease without esophagitis; F33.42 Major depressive disorder, recurrent, in full remission; G47.00 Insomnia, unspecified; I25.10 Atherosclerotic heart disease of native coronary artery without angina pectoris; G25.0 Essential tremor; Z79.01 Long term (current) use of anticoagulants; Z79.899 Other long term (current) drug therapy; Z88.8 Allergy status to other drugs, medicaments and biological substances; Z91.011 Allergy to milk products; Z95.2 Presence of prosthetic heart valve
CPT/HCPCS: 36415; 80048; 85027; 85610; 85730; 93005; 93010; J1100; J2001; J2405; J2704; J2765; J3010; S0028

== ENCOUNTER 2019-01-27 09:48 | Day surgery (SDC) | payer MEDICARE, OTHER ==
[~2019-01-27 09:48] MED LIST changes: -Dexamethasone 20 MG/5 ML VIAL ONE; +EPINEPHrine 1 MG/10 ML Abboject SYRINGE ONE; -Metoclopramide HCl 10 MG/2 ML VIAL ONE; -Ondansetron PF 4 MG/2 ML Vial ONE; +PHENYLEPHRINE-NS 100 MCG/ML 10 ML SYRINGE ONE; +Rocuronium Bromide 10 MG/ML (10ML VIAL) ONE; +Succinylcholine Chloride 20 MG/ML 10 ml SYRINGE FS ONE; +ePHEDrine 50 MG/ML VIAL ONE
[2019-01-27 10:55] LABS: #Lymphocytes 0.8 thou/uL (1.20-3.40); #Monocytes 0.3 thou/uL (0.11-0.59); #Neutrophils 5.9 thou/uL (1.40-6.50); %Basophils 0.2 % (0.0-1.0); %Eosinophils 0.2 % (0.0-10.0); %Lymphocytes 10.8 % (21.0-51.0); %Monocytes 4.6 % (0.0-10.0); %Neutrophils 84.2 % (42.0-75.0); Hemoglobin 8.1 g/dL (12.0-16.0); Mean Corpuscular HGB CONC 34.6 g/dL (32.0-36.0); Mean Corpuscular Hemoglobin 34.5 pg (27.0-31.0); Mean Corpuscular Volume 99.7 fL (78.0-98.0); Mean Platelet Volume 8.6 fL (7.4-10.4); Platelet Count 135 thou/uL (130-400); Red Blood Cell (RBC) Count 2.33 mill/uL (4.20-5.40)
[2019-01-27 11:48] LABS: INR-International Normal Ratio 1.8
[2019-01-27] MEDS ORDERED: Tranexamic Acid 1,000 MG/10 ML VIAL ONE (11:58)
[2019-01-27 12:03] LABS: ALT (SGPT) 35 U/L (8-55); AST (SGOT) 43 U/L (5-34); Albumin 3.7 g/dL (3.4-4.8); Alkaline Phosphatase 38 U/L (40-150); Anion Gap 10 mmol/L (10-20); BUN (Urea Nitrogen) 19 mg/dL (9.8-20.1); Bilirubin, Total 0.3 mg/dL (0.2-1.2); Calc. Creatinine Clearance 0 mL/min (70-130); Calcium 8.6 mg/dL (7.8-10.44); Carbon Dioxide 25 mmol/L (23-31); Chloride 109 mmol/L (98-107); Estimated GFR-MDRD 70; Globulin 1.9 g/dL (2.4-3.5); Glucose 114 mg/dL (83-110); Protein, Total 5.6 g/dL (6.0-8.3); Sodium 140 mmol/L (136-145)
[2019-01-27] MEDS ORDERED: Oxymetazoline HCl 0.05% ( 15 ML ) NASAL SCH (12:15)
[2019-01-27] MEDS ORDERED: ADMIXTURE FEE IV SCH (13:00)
[2019-01-27] MEDS ORDERED: HUMAN PROTHROMBIN COMPLX IV SCH (13:00)
[2019-01-27] MEDS ORDERED: Phytonadione 10 MG/ML AMP SLOW IVP SCH (13:00)
[2019-01-27] MEDS ORDERED: Phytonadione 10 MG/ML AMP ONE (13:12)
[2019-01-27 14:41] LABS: INR-International Normal Ratio 1.2; Prothrombin Time 14.9 SEC (12.0-14.7)
[2019-01-27] MEDS ORDERED: Ondansetron PF 4 MG/2 ML Vial ONE (15:26)
[2019-01-27] MEDS ORDERED: Morphine 2 MG/ML SYRINGE ONE (15:26)
[2019-01-27] MEDS ORDERED: Fentanyl 100 MCG/2 ML VIAL ONE (16:05)
[2019-01-27] MEDS ORDERED: EPINEPHrine 1 MG/ML AMP ONE ×4 (16:14→16:34)
[2019-01-27 19:02] LABS: Hemoglobin 9.1 g/dL (12.0-16.0)
--- NOTE | 2019-01-28 18:39 | OP ---
DATE OF PROCEDURE: 01/27/2019 PREOPERATIVE DIAGNOSES: 1. Epistaxis following nasal surgery. 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 POSTOPERATIVE DIAGNOSES: 1. Epistaxis following nasal surgery. 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 PROCEDURE PERFORMED: Nasal endoscopy with control of epistaxis. PATHOLOGY TEACHER: None. ANESTHESIA: General endotracheal anesthetic. ESTIMATED BLOOD LOSS: The patient only had about 20 mL of blood loss during the case, but there was significant amount of clot removed from the pharynx as well as blood-filled stomach contents removed within NG tube. IV FLUIDS: 500 mL. She also received completion of her unit of blood that she was had hanging from the ER. COMPLICATIONS: None. SPLINTS: None. FINDINGS: Some diffuse areas of oozing on both inferior turbinates posteriorly particularly. She also had an area on the left mid inferior septum and right anterior septum that was oozing. INDICATION FOR SURGERY: The patient has had a nasal surgery 2 days prior to admission to the emergency department and was on anticoagulant. She came into the emergency department because of persistent nosebleed. It was found that she had a hemoglobin dropped from 12 to 8, and the bleeding was unable to be stopped with reversal of her anticoagulated state and we had to give her a unit of blood. The patient was brought to the operating theater for endoscopic exam and control of epistaxis. DESCRIPTION OF PROCEDURE: After properly identifying the patient, the patient was brought to the operating room, placed on the operating room table, and placed under adequate general endotracheal anesthetic without difficulty. A time-out was performed prior to beginning the procedure. The patient was then prepped and draped in the usual fashion. The patient's pack was removed from the right nasal passage, and endoscopy was performed, suctioned out a lot of clot, but there was no active bleeding at this point. I then removed the pack from the left side, again significant amount of clot that was removed, got all the clot out of the nose, nasopharynx, and then I irrigated the nose a little bit, and found an area of bleeding in the posterior right inferior aspect of the inferior turbinate as well as the left side. These areas were cauterized with suction Bovie until adequate control was obtained. Then, there was an area noted bleeding on the caudal septum, where I believe, the incision was created, and it was quite oozy, and I cauterized that, as well as an area on the left side where there was a little bit of perforation and it was oozing through there that I cauterized. Once I saw no other bleeding, I irrigated the nose and nasopharynx again. I then had a Valsalva applied, and then there was no bleeding. At this point, I opted not to place anymore packing. I turned the patient back over to anesthesia after suctioning out the stomach. The patient was awakened and extubated in the operating room, taken to the recovery room in stable condition. Job ID: [id number]
== END 2019-01-27 19:33 | disposition home or self-care (01) ==
LOC: ERS 09:48 → SDC 15:57
PROVIDERS: ATTEND Otolaryngology
PROC: 093K8ZZ Control Bleeding in Nasal Mucosa and Soft Tissue, Via Natural or Artificial Opening Endoscopic (ICD-10-PCS; principal; 2019-01-27)
DX: R04.0 Epistaxis (principal); E78.5 Hyperlipidemia, unspecified; E78.00 Pure hypercholesterolemia, unspecified; M19.90 Unspecified osteoarthritis, unspecified site; Z79.01 Long term (current) use of anticoagulants; Z86.73 Personal history of transient ischemic attack (TIA), and cerebral infarction without residual deficits; Z88.8 Allergy status to other drugs, medicaments and biological substances; Z91.011 Allergy to milk products
CPT/HCPCS: 31238; 36430; 80053; 85014; 85018; 85025; 85610 ×2; 85730; 86850; 86900; 86901; 86920; 96374; 96375; 99291; C9132; P9016; 36415; J0171; J2001; J2270; J2405; J2704; J3010; J3430; J3490

== ENCOUNTER 2019-12-19 10:00 | Outpatient (CLI) | payer MEDICARE ==
--- NOTE | 2019-12-19 10:21 | RAD ---
XR Ankle Lt 3 View STANDARD HISTORY: Left lateral ankle pain FINDINGS: No fracture or dislocation is identified. The ankle mortise is maintained
== END 2019-12-19 10:01 | disposition home or self-care (01) ==
LOC: BICRAD 10:00
PROVIDERS: ATTEND Nurse Practitioner Family
DX: M25.572 Pain in left ankle and joints of left foot (principal)

== ENCOUNTER 2020-10-09 19:02 | Emergency (ER) | payer MEDICARE ==
[2020-10-09 22:25] LABS: Bilirubin Negative (Negative); Blood, Urine Trace (Negative); Clarity Clear (Clear); Glucose, Urine (Dipstick) Normal (Negative); Ketone, Urine Negative (Negative); Leukocyte 75 Leu/uL (Negative); Nitrite Negative (Negative); Protein, Urine (Dipstick) Negative (Neg-Trace); RBC/HPF 0-3 HPF (0-3); Renal Epithelial 0-3 HPF (None Seen); Specific Gravity, Urine 1.009 (1.002-1.036); Squamous Epithelial 0-3 HPF (0-3); Urobilinogen Normal mg/dL (Less than 2); WBC/HPF 0-3 HPF (0-3); pH, Urine 6.5 (5.0-9.0)
[2020-10-09 22:31] LABS: #Lymphocytes 1.2 thou/uL (1.20-3.40); #Monocytes 0.4 thou/uL (0.11-0.59); #Neutrophils 3.7 thou/uL (1.40-6.50); %Basophils 0.8 % (0.0-1.0); %Eosinophils 0.8 % (0.0-10.0); %Lymphocytes 22.6 % (21.0-51.0); %Monocytes 6.5 % (0.0-10.0); %Neutrophils 69.2 % (42.0-75.0); Hemoglobin 12.4 g/dL (12.0-16.0); Mean Corpuscular HGB CONC 34.7 g/dL (32.0-36.0); Mean Corpuscular Hemoglobin 34.5 pg (27.0-31.0); Mean Corpuscular Volume 99.5 fL (78.0-98.0); Mean Platelet Volume 8.3 fL (7.4-10.4); Platelet Count 198 thou/uL (130-400); RBC Distribution Width 12.2 % (11.5-14.5); White Blood Cell (WBC) Count 5.4 thou/uL (4.8-10.8)
[2020-10-09 22:32] LABS: Bacteria/HPF 1+ HPF (None Seen)
[2020-10-09 22:51] LABS: ALT (SGPT) 17 U/L (8-55); AST (SGOT) 21 U/L (5-34); Alkaline Phosphatase 48 U/L (40-110); Anion Gap 13 mmol/L (10-20); BUN (Urea Nitrogen) 19 mg/dL (9.8-20.1); Bilirubin, Total 0.3 mg/dL (0.2-1.2); Calc. Creatinine Clearance 0 mL/min (70-130); Calcium 9.7 mg/dL (7.8-10.44); Carbon Dioxide 26 mmol/L (23-31); Chloride 105 mmol/L (98-107); Globulin 2.7 g/dL (2.4-3.5); Glucose 109 mg/dL (83-110); Lipase 109 U/L (8-78); Potassium 4.7 mmol/L (3.5-5.1); Protein, Total 6.7 g/dL (5.8-8.1); Sodium 139 mmol/L (136-145)
== END 2020-10-09 22:25 | disposition home or self-care (01) ==
LOC: ERS 19:02
DX: R11.2 Nausea with vomiting, unspecified (principal); R19.7 Diarrhea, unspecified; E78.5 Hyperlipidemia, unspecified; E78.00 Pure hypercholesterolemia, unspecified; Z86.73 Personal history of transient ischemic attack (TIA), and cerebral infarction without residual deficits; Z79.899 Other long term (current) drug therapy
CPT/HCPCS: 36415; 80053; 81003; 81015; 83690; 85025; 87086; 99284

== ENCOUNTER 2021-03-02 11:43 | Inpatient (IN) | payer MEDICARE ==
[2021-03-02 12:03] LABS: #Eosinphils 0.1 thou/uL (0.0-0.7); #Lymphocytes 0.7 thou/uL (1.20-3.40); #Monocytes 0.4 thou/uL (0.11-0.59); #Neutrophils 5.4 thou/uL (1.40-6.50); %Basophils 0.5 % (0.0-1.0); %Eosinophils 0.9 % (0.0-10.0); %Lymphocytes 10.5 % (21.0-51.0); %Neutrophils 82.2 % (42.0-75.0); Hemoglobin 12.7 g/dL (12.0-16.0); Mean Corpuscular HGB CONC 32.9 g/dL (32.0-36.0); Mean Corpuscular Hemoglobin 32.1 pg (27.0-31.0); Mean Corpuscular Volume 97.4 fL (78.0-98.0); Mean Platelet Volume 8.5 fL (7.4-10.4); Platelet Count 190 thou/uL (130-400); RBC Distribution Width 12.2 % (11.5-14.5); Red Blood Cell (RBC) Count 3.95 mill/uL (4.20-5.40); White Blood Cell (WBC) Count 6.6 thou/uL (4.8-10.8)
[2021-03-02 12:14] LABS: INR-International Normal Ratio 2.6; Prothrombin Time 28.5 sec (12.0-14.7)
[2021-03-02 12:16] LABS: PTT 64.9 sec (22.9-36.1)
[2021-03-02 12:21] LABS: ALT (SGPT) 19 U/L (8-55); AST (SGOT) 26 U/L (5-34); Albumin 4.2 g/dL (3.4-4.8); Alkaline Phosphatase 58 U/L (40-110); Anion Gap 11 mmol/L (10-20); BUN (Urea Nitrogen) 15 mg/dL (9.8-20.1); Bilirubin, Total 0.4 mg/dL (0.2-1.2); Calc. Creatinine Clearance 0 mL/min (70-130); Calcium 9.3 mg/dL (7.8-10.44); Carbon Dioxide 25 mmol/L (23-31); Chloride 106 mmol/L (98-107); Globulin 2.5 g/dL (2.4-3.5); Glucose 101 mg/dL (83-110); Potassium 4.1 mmol/L (3.5-5.1); Protein, Total 6.7 g/dL (5.8-8.1); Sodium 138 mmol/L (136-145)
[2021-03-02] MEDS ORDERED: Aspirin 325 MG TAB ONE (14:41)
[2021-03-02] MEDS ORDERED: Acetaminophen 325 MG TAB PO PRN (17:39)
[2021-03-02] MEDS ORDERED: Ondansetron ODT 4 MG TAB PO PRN (17:39)
[2021-03-02] MEDS ORDERED: Warfarin Sodium 5 MG TAB PO SCH (17:55)
[2021-03-02 18:33] LABS: Magnesium 1.9 mg/dL (1.6-2.6)
[2021-03-02 19:49] LABS: SARS-CoV-2 NAA Rapid Test Not Detected (NotDetected)
[2021-03-02 21:54] VITALS: BMI 25.2
[2021-03-02] MEDS: Atorvastatin Calcium 10 MG TAB PO SCH (22:28)
[2021-03-02] MEDS: Digoxin 0.125 MG TAB PO SCH (22:28)
[2021-03-02] MEDS: Fenofibrate 48 MG TAB PO SCH (22:32)
[2021-03-02] MEDS ORDERED: Warfarin Sodium 2.5 MG TAB PO SCH (23:45)
[2021-03-03 06:02] LABS: #Eosinphils 0.1 thou/uL (0.0-0.7); #Monocytes 0.4 thou/uL (0.11-0.59); #Neutrophils 2.3 thou/uL (1.40-6.50); %Basophils 1.2 % (0.0-1.0); %Eosinophils 2.9 % (0.0-10.0); %Lymphocytes 26.4 % (21.0-51.0); %Monocytes 10.3 % (0.0-10.0); %Neutrophils 59.3 % (42.0-75.0); Hemoglobin 12.3 g/dL (12.0-16.0); Mean Corpuscular HGB CONC 33.8 g/dL (32.0-36.0); Mean Corpuscular Hemoglobin 33.3 pg (27.0-31.0); Mean Corpuscular Volume 98.4 fL (78.0-98.0); Mean Platelet Volume 8.3 fL (7.4-10.4); Platelet Count 166 thou/uL (130-400); RBC Distribution Width 12.2 % (11.5-14.5); Red Blood Cell (RBC) Count 3.68 mill/uL (4.20-5.40); White Blood Cell (WBC) Count 3.9 thou/uL (4.8-10.8)
[2021-03-03 06:11] LABS: Prothrombin Time 29.2 sec (12.0-14.7)
[2021-03-03 06:12] LABS: INR-International Normal Ratio 2.7
[2021-03-03 06:26] LABS: Anion Gap 11 mmol/L (10-20); BUN (Urea Nitrogen) 12 mg/dL (9.8-20.1); Calc. Creatinine Clearance 56 mL/min (70-130); Carbon Dioxide 27 mmol/L (23-31); Cardiac Risk 3.7 (Less than 4.5); Chloride 107 mmol/L (98-107); Cholesterol 170 mg/dl (< 200 Desired); Glucose 95 mg/dL (83-110); HDL Cholesterol 46 mg/dL (>60 Neg Risk); LDL Cholesterol, Calculated 99 mg/dL; Potassium 3.9 mmol/L (3.5-5.1); Sodium 141 mmol/L (136-145); Triglycerides 126 mg/dL (Less than 150)
[2021-03-03] MEDS: Citalopram 20 MG TAB PO SCH (09:07)
[2021-03-03] MEDS: Warfarin Sodium 5 MG TAB PO SCH (16:13)
[2021-03-03] MEDS ORDERED: Warfarin Sodium 2.5 MG TAB PO SCH (17:00)
[2021-03-03] MEDS: Digoxin 0.125 MG TAB PO SCH (21:41)
[2021-03-03] MEDS: Fenofibrate 48 MG TAB PO SCH (21:41)
[2021-03-03] MEDS: Atorvastatin Calcium 10 MG TAB PO SCH (21:41)
[2021-03-04 06:05] LABS: INR-International Normal Ratio 2.4; Prothrombin Time 26.7 sec (12.0-14.7)
[2021-03-04] MEDS: Citalopram 20 MG TAB PO SCH (08:26)
[2021-03-04] MEDS: Warfarin Sodium 5 MG TAB PO SCH (16:34)
[2021-03-04] MEDS: Atorvastatin Calcium 10 MG TAB PO SCH (20:52)
[2021-03-04] MEDS: Digoxin 0.125 MG TAB PO SCH (20:52)
[2021-03-04] MEDS: Fenofibrate 48 MG TAB PO SCH (20:52)
[2021-03-04] MEDS: cycloSPORINE 0.05% Ophthalmic Droperette EA EYE SCH (20:55)
[2021-03-05 05:47] LABS: #Eosinphils 0.2 thou/uL (0.0-0.7); #Lymphocytes 1.1 thou/uL (1.20-3.40); #Monocytes 0.3 thou/uL (0.11-0.59); #Neutrophils 2.7 thou/uL (1.40-6.50); %Basophils 0.9 % (0.0-1.0); %Eosinophils 3.6 % (0.0-10.0); %Lymphocytes 24.7 % (21.0-51.0); %Neutrophils 62.8 % (42.0-75.0); Hemoglobin 12.3 g/dL (12.0-16.0); Mean Corpuscular HGB CONC 32.8 g/dL (32.0-36.0); Mean Corpuscular Hemoglobin 32.7 pg (27.0-31.0); Mean Corpuscular Volume 99.7 fL (78.0-98.0); Mean Platelet Volume 8.3 fL (7.4-10.4); Platelet Count 188 thou/uL (130-400); RBC Distribution Width 12.2 % (11.5-14.5); Red Blood Cell (RBC) Count 3.75 mill/uL (4.20-5.40); White Blood Cell (WBC) Count 4.3 thou/uL (4.8-10.8)
[2021-03-05 05:55] LABS: INR-International Normal Ratio 2.6; Prothrombin Time 28.1 sec (12.0-14.7)
[2021-03-05 06:05] LABS: Anion Gap 12 mmol/L (10-20); BUN (Urea Nitrogen) 14 mg/dL (9.8-20.1); Calc. Creatinine Clearance 54 mL/min (70-130); Carbon Dioxide 25 mmol/L (23-31); Chloride 107 mmol/L (98-107); Glucose 109 mg/dL (83-110); Potassium 4.1 mmol/L (3.5-5.1); Sodium 140 mmol/L (136-145)
[2021-03-05] MEDS ORDERED: PROPOFOL 200 MG/20 ML VIAL ONE (08:46)
[2021-03-05] MEDS ORDERED: PHENYLEPHRINE-NS 100 MCG/ML 10 ML SYRINGE ONE (08:46)
[2021-03-05] MEDS ORDERED: Lidocaine 1% PF 5 ML VIAL ONE (08:46)
[2021-03-05] MEDS: Citalopram 20 MG TAB PO SCH (09:48)
[2021-03-05] MEDS: cycloSPORINE 0.05% Ophthalmic Droperette EA EYE SCH ×2 (09:50→09:53)
[2021-03-05 11:45] VITALS: TEMP 97.6
[2021-03-05 12:42] VITALS: BP 145/69
[2021-03-06] MEDS ORDERED: Warfarin Sodium 2.5 MG TAB PO SCH (17:00)
[2021-03-06] MEDS ORDERED: Warfarin Sodium 5 MG TAB PO SCH (17:00)
== END 2021-03-05 16:10 | disposition home health service (06) | DRG 69 ==
LOC: ERS 11:43 → ERHOLD 15:19 → 3SE 19:13 → OBSVTOIN 03-03 17:13
PROVIDERS: ADMIT Internal Medicine; ATTEND Internal Medicine
PROC: B24BZZ4 Ultrasonography of Heart with Aorta, Transesophageal (ICD-10-PCS; principal; 2021-03-05)
DX: G45.9 Transient cerebral ischemic attack, unspecified (principal); F32.0 Major depressive disorder, single episode, mild; Z20.822 Contact with and (suspected) exposure to COVID-19; I10 Essential (primary) hypertension; E78.5 Hyperlipidemia, unspecified; M19.90 Unspecified osteoarthritis, unspecified site; F41.9 Anxiety disorder, unspecified; K21.9 Gastro-esophageal reflux disease without esophagitis; I44.0 Atrioventricular block, first degree; M34.9 Systemic sclerosis, unspecified; G93.89 Other specified disorders of brain; G47.00 Insomnia, unspecified; H35.30 Unspecified macular degeneration; Z95.2 Presence of prosthetic heart valve; Z95.1 Presence of aortocoronary bypass graft; Z88.8 Allergy status to other drugs, medicaments and biological substances; Z91.011 Allergy to milk products; Z79.01 Long term (current) use of anticoagulants; Z79.899 Other long term (current) drug therapy; Z90.49 Acquired absence of other specified parts of digestive tract
CPT/HCPCS: 36415; 36416; 70450; 70470; 80048; 80053; 80061; 83735; 84443; 84484; 85025; 85610; 85730; 93005; 93306; 93312; 93880; 95712; 95819; 95957; G0378; J2704; U0002

== ENCOUNTER 2022-07-08 09:34 | Outpatient (CLI) | payer MEDICARE | END 2022-07-08 09:35 | disposition home or self-care (01) | LOC: BICCT 09:34 | PROVIDERS: ATTEND Internal Medicine Gastroenterology | DX: R19.7 Diarrhea, unspecified (principal); K21.9 Gastro-esophageal reflux disease without esophagitis; R11.2 Nausea with vomiting, unspecified | CPT/HCPCS: 74177 ==

== ENCOUNTER 2022-09-18 18:51 | Observation (INO) | payer MEDICARE ==
[2022-09-18 21:42] LABS: #Lymphocytes 0.3 thou/uL (1.20-3.40); #Monocytes 0.4 thou/uL (0.11-0.59); #Neutrophils 5.2 thou/uL (1.40-6.50); %Eosinophils 0.2 % (0.0-10.0); %Lymphocytes 5.1 % (21.0-51.0); %Monocytes 7.2 % (0.0-10.0); %Neutrophils 87.5 % (42.0-75.0); Mean Corpuscular HGB CONC 34.5 g/dL (32.0-36.0); Mean Corpuscular Volume 98.5 fl (78.0-98.0); Mean Platelet Volume 8.4 fL (7.4-10.4); Platelet Count 137 10x3/uL (130-400); RBC Distribution Width 12.5 % (11.5-14.5); Red Blood Cell (RBC) Count 3.52 mill/uL (4.20-5.40)
[2022-09-18 22:02] LABS: ALT (SGPT) 26 U/L (8-55); AST (SGOT) 37 U/L (5-34); Albumin 4.2 g/dL (3.4-4.8); Alkaline Phosphatase 62 U/L (40-110); Anion Gap 15 mmol/L (10-20); BUN (Urea Nitrogen) 12 mg/dL (9.8-20.1); Bilirubin, Total 0.3 mg/dL (0.2-1.2); Calc. Creatinine Clearance 0 mL/min (70-130); Carbon Dioxide 21 mmol/L (23-31); Chloride 106 mmol/L (98-107); Estimated GFR 66; Globulin 2.4 g/dL (2.4-3.5); Glucose 138 mg/dL (83-110); Lipase 46 U/L (8-78); Potassium 3.8 mmol/L (3.5-5.1); Protein, Total 6.6 g/dL (5.8-8.1); Sodium 138 mmol/L (136-145)
[2022-09-18] MEDS ORDERED: Ondansetron PF 4 MG/2 ML Vial IVP PRN (23:19)
[2022-09-18] MEDS ORDERED: Sodium Chloride 0.9% 1,000 ML IV SCH (23:30)
[2022-09-18 23:47] LABS: INR-International Normal Ratio 2.6; Prothrombin Time 28.7 sec (12.0-14.7)
[2022-09-19 00:38] VITALS: BMI 25.1
[2022-09-19] MEDS ORDERED: Non-Formulary Item 1 EACH (Loratadine [Claritin] 5 MG Tab.Rapdis) PO PRN (07:23)
[2022-09-19 07:33] LABS: #Lymphocytes 0.8 thou/uL (1.20-3.40); #Monocytes 0.5 thou/uL (0.11-0.59); #Neutrophils 2.9 thou/uL (1.40-6.50); %Basophils 0.7 % (0.0-1.0); %Eosinophils 0.3 % (0.0-10.0); %Lymphocytes 18.4 % (21.0-51.0); %Monocytes 11.7 % (0.0-10.0); %Neutrophils 68.9 % (42.0-75.0); Hemoglobin 11.3 g/dL (12.0-16.0); Mean Corpuscular HGB CONC 34.1 g/dL (32.0-36.0); Mean Corpuscular Hemoglobin 33.3 pg (27.0-31.0); Mean Corpuscular Volume 97.7 fl (78.0-98.0); Mean Platelet Volume 8.6 fL (7.4-10.4); Platelet Count 143 10x3/uL (130-400); RBC Distribution Width 12.5 % (11.5-14.5); White Blood Cell (WBC) Count 4.2 10x3/uL (4.8-10.8)
[2022-09-19] MEDS ORDERED: Loratadine 10 MG TAB PO PRN (07:35)
[2022-09-19 08:08] VITALS: BP 128/62; TEMP 97.8
[2022-09-19 08:08] LABS: Anion Gap 10 mmol/L (10-20); BUN (Urea Nitrogen) 10 mg/dL (9.8-20.1); Calc. Creatinine Clearance 57 mL/min (70-130); Calcium 8.5 mg/dL (7.8-10.44); Carbon Dioxide 23 mmol/L (23-31); Chloride 110 mmol/L (98-107); Estimated GFR 76; Glucose 95 mg/dL (83-110); Potassium 3.6 mmol/L (3.5-5.1); Sodium 139 mmol/L (136-145)
[2022-09-19] MEDS ORDERED: Famotidine 20 MG TAB PO SCH (09:00)
[2022-09-19] MEDS ORDERED: CARBOXYMETHYLCELLULOSE SODIUM EA EYE SCH (09:00)
[2022-09-19] MEDS ORDERED: Digoxin 0.125 MG TAB PO SCH ×2 (09:00)
[2022-09-19] MEDS ORDERED: [UNRECOGNIZED DRUG - OTHER] EA EYE SCH (09:00)
[2022-09-19] MEDS ORDERED: Fish Oil 1,000 MG CAP PO SCH (09:00)
[2022-09-19] MEDS ORDERED: Artificial Tear Sol 15 ML BOT EA EYE SCH (09:00)
[2022-09-19] MEDS ORDERED: Metoprolol Tartrate 25 MG TAB PO SCH ×2 (09:00)
[2022-09-19] MEDS ORDERED: Non-Formulary Item 1 EACH (Famotidine [Pepcid] 40 MG Tablet) PO SCH (09:00)
[2022-09-19] MEDS ORDERED: [UNRECOGNIZED DRUG - OTHER] PO SCH (09:00)
[2022-09-19] MEDS ORDERED: cycloSPORINE 0.05% Ophthalmic Droperette EA EYE SCH ×2 (09:00)
[2022-09-19] MEDS ORDERED: FATTY ACIDS PO SCH (09:00)
[2022-09-19] MEDS ORDERED: Escitalopram Oxalate 10 mg Tablet PO SCH (09:00)
[2022-09-19] MEDS ORDERED: Non-Formulary Item 1 EACH (Escitalopram Oxalate [Lexapro] 5 MG Tablet) PO SCH (09:00)
[2022-09-19] MEDS ORDERED: SALMON OIL PO SCH (09:00)
[2022-09-19] MEDS ORDERED: OMEGA PO SCH (09:00)
[2022-09-19] MEDS ORDERED: Calcium Carbonate 600 MG TAB PO SCH ×2 (09:00)
[2022-09-19] MEDS ORDERED: Warfarin Sodium 5 MG TAB PO SCH (17:00)
[2022-09-19] MEDS ORDERED: Montelukast Sodium 4 mg Chewable Tablet PO SCH (21:00)
[2022-09-19] MEDS ORDERED: Pravastatin Sodium 20 MG TAB PO SCH (21:00)
[2022-09-19] MEDS ORDERED: Simvastatin 10 MG TAB PO SCH (21:00)
[2022-09-19] MEDS ORDERED: ALPRAZolam 0.25 MG TAB PO SCH (21:00)
[2022-09-19] MEDS ORDERED: Fenofibrate 48 MG TAB PO SCH (21:00)
[2022-09-20] MEDS ORDERED: Warfarin Sodium 2.5 MG TAB PO SCH (17:00)
== END 2022-09-19 14:41 | disposition home or self-care (01) ==
LOC: ERS 18:51 → T4-B 23:13
PROVIDERS: ADMIT Family Medicine; ATTEND Family Medicine
DX: J06.9 Acute upper respiratory infection, unspecified (principal); R53.1 Weakness; E78.00 Pure hypercholesterolemia, unspecified; I10 Essential (primary) hypertension; Z79.899 Other long term (current) drug therapy; Z88.8 Allergy status to other drugs, medicaments and biological substances; Z91.011 Allergy to milk products; Z95.2 Presence of prosthetic heart valve
CPT/HCPCS: 71045; 80048; 80053; 83605; 83690; 83880; 84484; 85025 ×2; 85610; 87040; 87077; 87086; 87149 ×2; 93005; 99285; G0378 ×2; 36415; 87186; J7050

== ENCOUNTER 2023-04-06 11:28 | Outpatient (CLI) | payer MEDICARE, OTHER | END 2023-04-06 11:29 | disposition home or self-care (01) | LOC: BICMAMMO 11:28 | PROVIDERS: ATTEND Family Medicine | DX: Z12.31 Encounter for screening mammogram for malignant neoplasm of breast (principal); Z80.3 Family history of malignant neoplasm of breast | CPT/HCPCS: 77063; 77067 ==

== ENCOUNTER 2023-07-12 12:10 | Day surgery (SDC) | payer MEDICARE ==
[2023-07-08 10:49] VITALS: BMI 26.5
[2023-07-12] MEDS ORDERED: Sodium Chloride 0.9% 100 ML ONE (13:25)
[2023-07-12] MEDS ORDERED: CEFAZOLIN 2 GM VIAL ONE (13:25)
[2023-07-12] MEDS ORDERED: PROPOFOL 200 MG/20 ML VIAL ONE (13:35)
== END 2023-07-12 14:55 | disposition home or self-care (01) ==
LOC: SDC 12:10
PROVIDERS: ATTEND Internal Medicine Gastroenterology
PROC: 0D758ZZ Dilation of Esophagus, Via Natural or Artificial Opening Endoscopic (ICD-10-PCS; principal; 2023-07-12)
DX: K21.9 Gastro-esophageal reflux disease without esophagitis (principal); F41.9 Anxiety disorder, unspecified; F32.A Depression, unspecified; M19.90 Unspecified osteoarthritis, unspecified site; Z79.01 Long term (current) use of anticoagulants; Z86.73 Personal history of transient ischemic attack (TIA), and cerebral infarction without residual deficits; Z90.710 Acquired absence of both cervix and uterus; Z98.890 Other specified postprocedural states; Z79.899 Other long term (current) drug therapy; Z79.890 Hormone replacement therapy; Z88.8 Allergy status to other drugs, medicaments and biological substances; Z91.011 Allergy to milk products; Z88.1 Allergy status to other antibiotic agents
CPT/HCPCS: J2704; J3490

== ENCOUNTER 2024-06-07 13:13 | Outpatient (CLI) | payer MEDICARE, OTHER | END 2024-06-07 13:14 | disposition home or self-care (01) | LOC: BICMAMMO 13:13 | PROVIDERS: ATTEND Family Medicine | DX: Z12.31 Encounter for screening mammogram for malignant neoplasm of breast (principal); Z80.3 Family history of malignant neoplasm of breast | CPT/HCPCS: 77063; 77067 ==

== ENCOUNTER 2025-02-01 09:08 | Outpatient (CLI) | payer MEDICARE, OTHER | END 2025-02-01 09:09 | disposition home or self-care (01) | LOC: BICRAD 09:08 | PROVIDERS: ATTEND Family Medicine | DX: M46.1 Sacroiliitis, not elsewhere classified (principal); M54.50 Low back pain, unspecified | CPT/HCPCS: 72100; 72202 ==

== ENCOUNTER 2025-02-21 12:51 | Outpatient (CLI) | payer MEDICARE, OTHER | END 2025-02-21 12:52 | disposition home or self-care (01) | LOC: BICCT 12:51 | PROVIDERS: ATTEND Family Medicine | DX: M54.41 Lumbago with sciatica, right side (principal); M54.42 Lumbago with sciatica, left side; M47.816 Spondylosis without myelopathy or radiculopathy, lumbar region | CPT/HCPCS: 72131 ==

== ENCOUNTER 2025-05-06 11:02 | Inpatient (IN) | payer MEDICARE, OTHER ==
[~2025-05-06 11:02] MED LIST changes: -EPINEPHrine 1 MG/10 ML Abboject SYRINGE ONE; +Iopamidol-370 76% 500 ML MDV (1 ML CHARGE) ONE; -Lidocaine 1% PF 5 ML VIAL ONE; -PHENYLEPHRINE-NS 100 MCG/ML 10 ML SYRINGE ONE; -PROPOFOL 200 MG/20 ML VIAL ONE; -Rocuronium Bromide 10 MG/ML (10ML VIAL) ONE; -Succinylcholine Chloride 20 MG/ML 10 ml SYRINGE FS ONE; -ePHEDrine 50 MG/ML VIAL ONE
[2025-05-06 11:30] LABS: #Basophils Less than 0.03 10x3/uL (0.0-0.2); #Eosinophils Less than 0.03 10x3/uL (0.0-0.7); #Monocytes 0.37 10x3/uL (0.11-0.59); #Neutrophils 5.22 10x3/uL (1.40-6.50); %Basophils 0.2 % (0.0-1.0); %Eosinophils 0.0 % (0.0-10.0); %Lymphocytes 4.7 % (21.0-51.0); %Monocytes 6.2 % (0.0-10.0); %Neutrophils 87.6 % (42.0-75.0); Hematocrit 38.4 % (36.0-47.0); Hemoglobin 12.6 g/dL (12.0-16.0); Mean Corpuscular Hemoglobin 31.6 pg (27.0-31.0); Mean Corpuscular Volume 96.2 fL (78.0-98.0); Platelet Count 158 10x3/uL (130-400); Red Blood Cell (RBC) Count 3.99 mill/uL (4.20-5.40); White Blood Cell (WBC) Count 5.96 10x3/uL (4.8-10.8)
[2025-05-06 11:44] LABS: INR-International Normal Ratio 3.2; PTT 76.9 sec (22.9-36.1); Prothrombin Time 33.3 sec (12.0-14.7)
[2025-05-06 11:48] LABS: ALT (SGPT) 41 U/L (Less than 34); AST (SGOT) 41 U/L (11-34); Albumin 4.4 g/dL (3.1-4.5); Alkaline Phosphatase 55 U/L (40-110); Anion Gap 16 mmol/L (10-20); BUN (Urea Nitrogen) 9 mg/dL (9.8-20.1); Bilirubin, Total 0.3 mg/dL (0.3-1.2); Calc. Creatinine Clearance 0 mL/min (70-130); Calcium 8.8 mg/dL (7.8-10.44); Carbon Dioxide 22 mmol/L (23-31); Chloride 105 mmol/L (98-107); Globulin 2.7 g/dL (2.4-3.5); Glucose 124 mg/dL (83-110); Potassium 3.6 mmol/L (3.5-5.1); Sodium 139 mmol/L (136-145)
[2025-05-06] MEDS ORDERED: cefTRIAXone (ROCEPHIN) 1 GM VIAL ONE (12:15)
[2025-05-06] MEDS ORDERED: Acetaminophen 500 MG TAB ONE (12:18)
[2025-05-06 13:38] LABS: Glucose, Urine (Dipstick) Negative (Negative); Leukocyte Negative (Negative); Protein, Urine (Dipstick) Negative (Neg-Trace); Specific Gravity, Urine 1.010 (1.005-1.030)
[2025-05-06 13:45] LABS: Bacteria/HPF None Seen HPF (None Seen); CAUTI Indications for Culture Pelvic or flank pain; RBC/HPF 21-50 HPF (0-3); WBC/HPF 0-3 HPF (0-3)
[2025-05-06 13:53] LABS: Urine Culture Reflex No No
[2025-05-06] MEDS ORDERED: Acetaminophen 325 MG TAB PO PRN (15:18)
[2025-05-06] MEDS ORDERED: Melatonin 3 MG TAB PO PRN (15:18)
[2025-05-06] MEDS ORDERED: Ketorolac Tromethamine 30 MG (1 mL) VIAL IVP PRN (15:18)
[2025-05-06] MEDS ORDERED: Ondansetron PF 4 MG/2 ML Vial ONE (18:19)
[2025-05-06] MEDS ORDERED: KETAMINE 100 MG/ML (5ML VIAL) ONE (18:37)
[2025-05-06] MEDS ORDERED: Ventilator Sedation Protocol 1 EACH FS SCH (20:45)
[2025-05-06] MEDS ORDERED: Propofol BOLUS 1,000 MG/100 ML VIAL IV PRN (21:00)
[2025-05-06] MEDS ORDERED: Fentanyl BOLUS 100 ML IVPB PRN (21:00)
[2025-05-06] MEDS ORDERED: DISCONTINUE PREVIOUS NARCOTIC PAIN MEDICATIONS AND BENZODIAZEPINES FS SCH (21:00)
[2025-05-06] MEDS ORDERED: ALPRAZolam 0.25 MG TAB PO SCH (21:00)
[2025-05-06] MEDS: Famotidine 20 MG TAB PO SCH (21:54)
[2025-05-06] MEDS: Oseltamivir 75 MG CAP PO SCH (23:22)
[2025-05-07 04:11] LABS: #Basophils Less than 0.03 10x3/uL (0.0-0.2); #Eosinophils Less than 0.03 10x3/uL (0.0-0.7); Hematocrit 34.4 % (36.0-47.0)
[2025-05-07 04:16] LABS: Anion Gap 18 mmol/L (10-20); BUN (Urea Nitrogen) 11 mg/dL (9.8-20.1); Calc. Creatinine Clearance 51 mL/min (70-130); Calcium 8.3 mg/dL (7.8-10.44); Carbon Dioxide 19 mmol/L (23-31); Chloride 108 mmol/L (98-107); Glucose 140 mg/dL (83-110); Potassium 3.6 mmol/L (3.5-5.1); Sodium 141 mmol/L (136-145)
[2025-05-07 04:20] LABS: INR-International Normal Ratio 3.5; Prothrombin Time 35.1 sec (12.0-14.7)
[2025-05-07 04:34] LABS: #Monocytes 0.66 10x3/uL (0.11-0.59); #Neutrophils 7.51 10x3/uL (1.40-6.50); %Basophils 0.2 % (0.0-1.0); %Eosinophils 0.2 % (0.0-10.0); %Lymphocytes 7.4 % (21.0-51.0); %Monocytes 7.4 % (0.0-10.0); %Neutrophils 83.8 % (42.0-75.0); Hemoglobin 11.0 g/dL (12.0-16.0); Mean Corpuscular Hemoglobin 31.9 pg (27.0-31.0); Mean Corpuscular Volume 99.7 fL (78.0-98.0); Platelet Count 136 10x3/uL (130-400); Red Blood Cell (RBC) Count 3.45 mill/uL (4.20-5.40); White Blood Cell (WBC) Count 8.96 10x3/uL (4.8-10.8)
[2025-05-07] MEDS: Acetaminophen 325 MG TAB PER TUBE PRN (07:43)
[2025-05-07] MEDS: Famotidine 20 MG TAB PER TUBE SCH (07:44)
[2025-05-07] MEDS: Oseltamivir 75 MG CAP PO SCH (07:44)
[2025-05-07] MEDS ORDERED: Azithromycin 250 MG TAB PO SCH (09:00)
[2025-05-07] MEDS: Mupirocin 1 GM TUBE TP SCH (09:06)
[2025-05-07] MEDS: cefTRIAXone\\ROCEPHIN 1 GM in Sodium Chloride 0.9% 100 ML IVPB SCH (12:15)
[2025-05-08 05:07] LABS: #Basophils Less than 0.03 10x3/uL (0.0-0.2); #Eosinophils Less than 0.03 10x3/uL (0.0-0.7); #Monocytes 0.54 10x3/uL (0.11-0.59); #Neutrophils 9.18 10x3/uL (1.40-6.50); %Basophils 0.1 % (0.0-1.0); %Eosinophils 0.2 % (0.0-10.0); %Lymphocytes 6.7 % (21.0-51.0); %Monocytes 5.1 % (0.0-10.0); %Neutrophils 86.7 % (42.0-75.0); Hematocrit 27.6 % (36.0-47.0); Hemoglobin 8.7 g/dL (12.0-16.0); Mean Corpuscular Hemoglobin 31.1 pg (27.0-31.0); Mean Corpuscular Volume 98.6 fL (78.0-98.0); Platelet Count 117 10x3/uL (130-400); Red Blood Cell (RBC) Count 2.80 mill/uL (4.20-5.40); White Blood Cell (WBC) Count 10.59 10x3/uL (4.8-10.8)
[2025-05-08 05:12] LABS: INR-International Normal Ratio 3.9; Prothrombin Time 38.8 sec (12.0-14.7)
[2025-05-08 05:14] LABS: Anion Gap 11 mmol/L (10-20); BUN (Urea Nitrogen) 27 mg/dL (9.8-20.1); Calc. Creatinine Clearance 41 mL/min (70-130); Calcium 8.1 mg/dL (7.8-10.44); Carbon Dioxide 24 mmol/L (23-31); Chloride 106 mmol/L (98-107); Glucose 112 mg/dL (83-110); Potassium 3.1 mmol/L (3.5-5.1); Sodium 138 mmol/L (136-145)
[2025-05-08 07:35] LABS: Actual Bicarbonate (HCO3a) 22.4 mEq/L (22-28); Base Excess (BEa) -0.9 mEq/L (-2.0 to +3.0); CO2 Tension 31.8 mmHg (35.0-45.0); Calcium, Ionized (arterial) 1.10 mmol/L (1.12-1.30); Hematocrit-ABG 30 % (36.0-47.0); Hemoglobin (Hb) 10.1 g/dL (12.0-16.0); O2 Tension (PaO2), arterial 94.1 mmHg (> 60.0); Potassium - ABG Lab 3.13 mmol/L (3.70-5.30); pH, Arterial 7.465 (7.35-7.45)
[2025-05-08 07:38] LABS: Puncture Site Left Radial artery
[2025-05-08] MEDS ORDERED: PHOS-NAK 1 PKT PACK PO PRN (08:30)
[2025-05-08] MEDS ORDERED: Magnesium Sulfate In Water 4 GM in Premix 1 BAG IVPB PRN (08:30)
[2025-05-08] MEDS: Potassium Bicarbonate/Cit Ac 20 MEQ TAB PER TUBE SCH (08:33)
[2025-05-08] MEDS: Ondansetron PF 4 MG/2 ML Vial IVP PRN (16:11)
[2025-05-08] MEDS: Famotidine/PF 20 mg/2ml Vial SLOW IVP SCH (20:31)
[2025-05-08] MEDS ORDERED: Famotidine 20 MG TAB PER TUBE SCH (21:00)
[2025-05-08] MEDS: diphenhydrAMINE 50 MG/ML VIAL IVP SCH (22:57)
[2025-05-09] MEDS: Furosemide 20 MG (2 mL) VIAL SLOW IVP SCH (00:39)
[2025-05-09] MEDS: Potassium Chloride 20 MEQ in Premix 1 BAG IVPB PRN (00:45)
[2025-05-09] MEDS: Electrolyte Replacement Protocol 1 EACH FS ONE (02:20)
[2025-05-09 04:55] LABS: Hematocrit 30.9 % (36.0-47.0); Hemoglobin 9.9 g/dL (12.0-16.0); Mean Corpuscular Hemoglobin 31.6 pg (27.0-31.0); Mean Corpuscular Volume 98.7 fL (78.0-98.0); Platelet Count 143 10x3/uL (130-400); Red Blood Cell (RBC) Count 3.13 mill/uL (4.20-5.40); White Blood Cell (WBC) Count 11.19 10x3/uL (4.8-10.8)
[2025-05-09 05:02] LABS: Anion Gap 13 mmol/L (10-20); BUN (Urea Nitrogen) 16 mg/dL (9.8-20.1); Calc. Creatinine Clearance 69 mL/min (70-130); Calcium 8.9 mg/dL (7.8-10.44); Carbon Dioxide 26 mmol/L (23-31); Chloride 107 mmol/L (98-107); Glucose 91 mg/dL (83-110); Potassium 4.6 mmol/L (3.5-5.1); Sodium 141 mmol/L (136-145)
[2025-05-09 05:04] LABS: INR-International Normal Ratio 3.0; Prothrombin Time 31.6 sec (12.0-14.7)
[2025-05-09 05:58] LABS: Platelet Adequacy Comment Platelets Normal; RBC Morphology Within Normal Limits; Smudge Cells 4.0 %
[2025-05-09] MEDS: Glycopyrrolate 0.4 MG/ 2 ML VIAL SLOW IVP SCH (06:05)
[2025-05-09] MEDS: PNEUMOC 20-VAL CONJ-DIP CRM/PF 0.5 ML SYRINGE IM ONE (07:50)
[2025-05-10 04:48] LABS: Anion Gap 13 mmol/L (10-20); BUN (Urea Nitrogen) 25 mg/dL (9.8-20.1); Calc. Creatinine Clearance 71 mL/min (70-130); Calcium 9.3 mg/dL (7.8-10.44); Carbon Dioxide 25 mmol/L (23-31); Chloride 110 mmol/L (98-107); Glucose 124 mg/dL (83-110); Potassium 4.1 mmol/L (3.5-5.1); Sodium 144 mmol/L (136-145)
[2025-05-10 04:51] LABS: #Basophils Less than 0.03 10x3/uL (0.0-0.2); #Eosinophils Less than 0.03 10x3/uL (0.0-0.7); #Monocytes 0.64 10x3/uL (0.11-0.59); #Neutrophils 7.31 10x3/uL (1.40-6.50); %Basophils 0.2 % (0.0-1.0); %Eosinophils 0.0 % (0.0-10.0); %Lymphocytes 7.4 % (21.0-51.0); %Monocytes 7.3 % (0.0-10.0); %Neutrophils 83.5 % (42.0-75.0); Hematocrit 29.9 % (36.0-47.0); Hemoglobin 9.4 g/dL (12.0-16.0); Mean Corpuscular Hemoglobin 31.0 pg (27.0-31.0); Mean Corpuscular Volume 98.7 fL (78.0-98.0); Platelet Count 139 10x3/uL (130-400); Red Blood Cell (RBC) Count 3.03 mill/uL (4.20-5.40); White Blood Cell (WBC) Count 8.76 10x3/uL (4.8-10.8)
[2025-05-10 05:18] LABS: INR-International Normal Ratio 2.4; Prothrombin Time 26.1 sec (12.0-14.7)
[2025-05-10] MEDS: Enoxaparin 80 MG (0.8 mL) SYRINGE SC SCH ×2 (13:06→20:13)
[2025-05-10 17:03] LABS: Actual Bicarbonate (HCO3a) 20.6 mEq/L (22-28); Base Excess (BEa) -5.6 mEq/L (-2.0 to +3.0); CO2 Tension 43.2 mmHg (35.0-45.0); Calcium, Ionized (arterial) 1.20 mmol/L (1.12-1.30); Hematocrit-ABG 34 % (36.0-47.0); Hemoglobin (Hb) 11.4 g/dL (12.0-16.0); O2 Tension (PaO2), arterial 117.1 mmHg (> 60.0); Potassium - ABG Lab 3.83 mmol/L (3.70-5.30); pH, Arterial 7.297 (7.35-7.45)
[2025-05-10 17:06] LABS: Puncture Site Right Brachial art
[2025-05-10] MEDS: Famotidine/PF 20 mg/2ml Vial SLOW IVP SCH (20:12)
[2025-05-11 02:42] LABS: Actual Bicarbonate (HCO3a) 24.8 mEq/L (22-28); Base Excess (BEa) -3.1 mEq/L (-2.0 to +3.0); CO2 Tension 55.8 mmHg (35.0-45.0); Calcium, Ionized (arterial) 1.23 mmol/L (1.12-1.30); Hematocrit-ABG 42 % (36.0-47.0); Hemoglobin (Hb) 14.2 g/dL (12.0-16.0); O2 Tension (PaO2), arterial 131.5 mmHg (> 60.0); Potassium - ABG Lab 4.71 mmol/L (3.70-5.30); Puncture Site Left Brachial artery; pH, Arterial 7.265 (7.35-7.45)
[2025-05-11 09:49] LABS: Hematocrit 32.9 % (36.0-47.0); Hemoglobin 9.9 g/dL (12.0-16.0); Mean Corpuscular Hemoglobin 31.0 pg (27.0-31.0); Mean Corpuscular Volume 103.1 fL (78.0-98.0); Platelet Count 215 10x3/uL (130-400); Red Blood Cell (RBC) Count 3.19 mill/uL (4.20-5.40); White Blood Cell (WBC) Count 11.63 10x3/uL (4.8-10.8)
[2025-05-11 10:00] LABS: INR-International Normal Ratio 2.5; Prothrombin Time 27.3 sec (12.0-14.7)
[2025-05-11 10:05] LABS: Anion Gap 10 mmol/L (10-20); BUN (Urea Nitrogen) 35 mg/dL (9.8-20.1); Calc. Creatinine Clearance 63 mL/min (70-130); Calcium 9.4 mg/dL (7.8-10.44); Carbon Dioxide 25 mmol/L (23-31); Chloride 117 mmol/L (98-107); Glucose 117 mg/dL (83-110); Potassium 4.9 mmol/L (3.5-5.1); Sodium 147 mmol/L (136-145)
[2025-05-11 10:13] LABS: Macrocytosis SLIGHT = 6-15 cells HPF (0-5); Platelet Adequacy Comment Platelets Normal; Polychromasia SLIGHT = 2-3 cells HPF (0-2); RBC Morphology Within Normal Limits
[2025-05-11] MEDS: Etomidate 40 MG (20 mL) VIAL IVP SCH (20:16)
[2025-05-11] MEDS: PROPOFOL 200 MG/20 ML VIAL IV SCH (20:28)
[2025-05-11] MEDS: Rocuronium Bromide 10 MG/ML (10ML VIAL) IVP SCH (20:29)
[2025-05-11] MEDS ORDERED: Propofol BOLUS 1,000 MG/100 ML VIAL IV PRN (20:30)
[2025-05-11] MEDS ORDERED: Ventilator Sedation Protocol 1 EACH FS SCH (20:30)
[2025-05-11] MEDS ORDERED: Fentanyl BOLUS 100 ML IVPB PRN (20:30)
[2025-05-11] MEDS ORDERED: DISCONTINUE PREVIOUS NARCOTIC PAIN MEDICATIONS AND BENZODIAZEPINES FS SCH (20:30)
[2025-05-11 20:58] LABS: Actual Bicarbonate (HCO3a) 25.0 mEq/L (22-28); Base Excess (BEa) 1.4 mEq/L (-2.0 to +3.0); CO2 Tension 35.8 mmHg (35.0-45.0); Calcium, Ionized (arterial) 1.18 mmol/L (1.12-1.30); Hematocrit-ABG 34 % (36.0-47.0); Hemoglobin (Hb) 11.6 g/dL (12.0-16.0); O2 Tension (PaO2), arterial 71.6 mmHg (> 60.0); Potassium - ABG Lab 4.33 mmol/L (3.70-5.30); pH, Arterial 7.462 (7.35-7.45)
[2025-05-11 20:59] LABS: Puncture Site Right Radial artery
[2025-05-12 04:58] LABS: Hematocrit 28.6 % (36.0-47.0); Hemoglobin 9.0 g/dL (12.0-16.0); Mean Corpuscular Hemoglobin 31.4 pg (27.0-31.0); Mean Corpuscular Volume 99.7 fL (78.0-98.0); Platelet Count 162 10x3/uL (130-400); Red Blood Cell (RBC) Count 2.87 mill/uL (4.20-5.40); White Blood Cell (WBC) Count 7.15 10x3/uL (4.8-10.8)
[2025-05-12 05:01] LABS: INR-International Normal Ratio 2.7; Prothrombin Time 29.2 sec (12.0-14.7)
[2025-05-12 05:14] LABS: Anion Gap 6 mmol/L (10-20); BUN (Urea Nitrogen) 33 mg/dL (9.8-20.1); Calc. Creatinine Clearance 69 mL/min (70-130); Calcium 9.0 mg/dL (7.8-10.44); Carbon Dioxide 28 mmol/L (23-31); Chloride 120 mmol/L (98-107); Glucose 91 mg/dL (83-110); Potassium 3.3 mmol/L (3.5-5.1); Sodium 151 mmol/L (136-145)
[2025-05-12 05:41] LABS: Anisocytosis SLIGHT = 6-15 cells HPF (0-5); Nucleated RBC (Manual Ct) 1 % (0); Platelet Adequacy Comment Platelets Normal; Polychromasia SLIGHT = 2-3 cells HPF (0-2); Smudge Cells 10.0 %
[2025-05-12] MEDS: Lidocaine 1% (PF) 30 ML VIAL ONE (17:02)
[2025-05-13 03:18] LABS: Hematocrit 26.9 % (36.0-47.0); Hemoglobin 8.5 g/dL (12.0-16.0); Mean Corpuscular Hemoglobin 31.1 pg (27.0-31.0); Mean Corpuscular Volume 98.5 fL (78.0-98.0); Platelet Count 179 10x3/uL (130-400); Red Blood Cell (RBC) Count 2.73 mill/uL (4.20-5.40); White Blood Cell (WBC) Count 5.83 10x3/uL (4.8-10.8)
[2025-05-13 03:44] LABS: INR-International Normal Ratio 2.1; Prothrombin Time 23.9 sec (12.0-14.7)
[2025-05-13 04:01] LABS: Nucleated RBC (Manual Ct) 2 % (0); Platelet Adequacy Comment Platelets Normal; RBC Morphology Within Normal Limits; Smudge Cells 9.6 %
[2025-05-13 05:12] LABS: Anion Gap 13 mmol/L (10-20); BUN (Urea Nitrogen) 28 mg/dL (9.8-20.1); Calc. Creatinine Clearance 64 mL/min (70-130); Calcium 8.5 mg/dL (7.8-10.44); Carbon Dioxide 26 mmol/L (23-31); Chloride 116 mmol/L (98-107); Glucose 131 mg/dL (83-110); Potassium 3.0 mmol/L (3.5-5.1); Sodium 152 mmol/L (136-145)
[2025-05-13 15:14] LABS: Potassium 3.4 mmol/L (3.5-5.1)
[2025-05-14 03:57] LABS: Anion Gap 9 mmol/L (10-20); BUN (Urea Nitrogen) 18 mg/dL (9.8-20.1); Calc. Creatinine Clearance 73 mL/min (70-130); Calcium 8.6 mg/dL (7.8-10.44); Carbon Dioxide 26 mmol/L (23-31); Chloride 113 mmol/L (98-107); Glucose 131 mg/dL (83-110); Potassium 3.5 mmol/L (3.5-5.1); Sodium 144 mmol/L (136-145)
[2025-05-14 04:04] LABS: INR-International Normal Ratio 1.9; Prothrombin Time 21.7 sec (12.0-14.7)
[2025-05-14 04:30] LABS: Hematocrit 26.3 % (36.0-47.0); Hemoglobin 8.3 g/dL (12.0-16.0); Mean Corpuscular Hemoglobin 31.1 pg (27.0-31.0); Mean Corpuscular Volume 98.5 fL (78.0-98.0); Platelet Count 188 10x3/uL (130-400); Red Blood Cell (RBC) Count 2.67 mill/uL (4.20-5.40); White Blood Cell (WBC) Count 7.84 10x3/uL (4.8-10.8)
[2025-05-14 06:32] LABS: Anisocytosis SLIGHT = 6-15 cells HPF (0-5); Macrocytosis SLIGHT = 6-15 cells HPF (0-5); Nucleated RBC (Manual Ct) 2 % (0); Ovalocytes SLIGHT = 2-5 cells HPF (0-1); Platelet Adequacy Comment Platelets Normal; Polychromasia SLIGHT = 2-3 cells HPF (0-2); Smudge Cells 9.5 %
[2025-05-15 03:45] LABS: Hematocrit 29.7 % (36.0-47.0); Hemoglobin 9.7 g/dL (12.0-16.0); Mean Corpuscular Hemoglobin 31.5 pg (27.0-31.0); Mean Corpuscular Volume 96.4 fL (78.0-98.0); Platelet Count 169 10x3/uL (130-400); Red Blood Cell (RBC) Count 3.08 mill/uL (4.20-5.40); White Blood Cell (WBC) Count 7.83 10x3/uL (4.8-10.8)
[2025-05-15 03:58] LABS: INR-International Normal Ratio 1.6; Prothrombin Time 19.6 sec (12.0-14.7)
[2025-05-15 04:20] LABS: Anion Gap 13 mmol/L (10-20); BUN (Urea Nitrogen) 19 mg/dL (9.8-20.1); Calc. Creatinine Clearance 78 mL/min (70-130); Calcium 8.7 mg/dL (7.8-10.44); Carbon Dioxide 22 mmol/L (23-31); Chloride 109 mmol/L (98-107); Glucose 203 mg/dL (83-110); Potassium 3.6 mmol/L (3.5-5.1); Sodium 140 mmol/L (136-145)
[2025-05-15 05:48] LABS: Nucleated RBC (Manual Ct) 1 % (0); Platelet Adequacy Comment Platelets Normal; Polychromasia SLIGHT = 2-3 cells HPF (0-2); Smudge Cells 4.0 %
[2025-05-15] MEDS: Scopolamine 1 mg/72 hour Patch TOP SCH (09:56)
[2025-05-15] MEDS ORDERED: Acetaminophen 325 MG TAB PO PRN (12:29)
[2025-05-15] MEDS: DC Sedation Protocol FS ONE (14:44)
[2025-05-16 04:16] LABS: Hematocrit 28.7 % (36.0-47.0); Hemoglobin 9.3 g/dL (12.0-16.0); Mean Corpuscular Hemoglobin 31.2 pg (27.0-31.0); Mean Corpuscular Volume 96.3 fL (78.0-98.0); Platelet Count 225 10x3/uL (130-400); Red Blood Cell (RBC) Count 2.98 mill/uL (4.20-5.40); White Blood Cell (WBC) Count 13.05 10x3/uL (4.8-10.8)
[2025-05-16 04:29] LABS: Anion Gap 11 mmol/L (10-20); BUN (Urea Nitrogen) 19 mg/dL (9.8-20.1); Calc. Creatinine Clearance 79 mL/min (70-130); Calcium 8.6 mg/dL (7.8-10.44); Carbon Dioxide 23 mmol/L (23-31); Chloride 116 mmol/L (98-107); Glucose 158 mg/dL (83-110); Potassium 3.5 mmol/L (3.5-5.1); Sodium 146 mmol/L (136-145)
[2025-05-16 04:35] LABS: INR-International Normal Ratio 1.6; Prothrombin Time 19.3 sec (12.0-14.7)
[2025-05-16 05:03] LABS: Anisocytosis SLIGHT = 6-15 cells HPF (0-5); Macrocytosis SLIGHT = 6-15 cells HPF (0-5); Ovalocytes SLIGHT = 2-5 cells HPF (0-1); Platelet Adequacy Comment Platelets Normal; Polychromasia SLIGHT = 2-3 cells HPF (0-2); Smudge Cells 8.5 %
[2025-05-16] MEDS: ALPRAZolam 0.25 MG TAB PO SCH ×2 (08:47→20:36)
[2025-05-17 00:51] VITALS: BMI 26.9
[2025-05-17 04:15] LABS: INR-International Normal Ratio 1.9; Prothrombin Time 22.2 sec (12.0-14.7)
[2025-05-17 04:23] LABS: Hematocrit 30.4 % (36.0-47.0); Hemoglobin 9.7 g/dL (12.0-16.0); Mean Corpuscular Hemoglobin 31.3 pg (27.0-31.0); Mean Corpuscular Volume 98.1 fL (78.0-98.0); Platelet Count 260 10x3/uL (130-400); Red Blood Cell (RBC) Count 3.10 mill/uL (4.20-5.40); White Blood Cell (WBC) Count 14.60 10x3/uL (4.8-10.8)
[2025-05-17 04:46] LABS: Anion Gap 11 mmol/L (10-20); BUN (Urea Nitrogen) 17 mg/dL (9.8-20.1); Calc. Creatinine Clearance 79 mL/min (70-130); Carbon Dioxide 27 mmol/L (23-31); Chloride 110 mmol/L (98-107); Potassium 3.2 mmol/L (3.5-5.1); Sodium 145 mmol/L (136-145)
[2025-05-17 04:47] LABS: Calcium 8.6 mg/dL (7.6-10.4); Glucose 132 mg/dL (83-110)
[2025-05-17 05:06] LABS: Macrocytosis SLIGHT = 6-15 cells HPF (0-5); Platelet Adequacy Comment Platelets Normal; Polychromasia SLIGHT = 2-3 cells HPF (0-2)
[2025-05-17] MEDS: QUEtiapine 25 MG TAB PO SCH (20:19)
[2025-05-18 04:22] LABS: #Basophils Less than 0.03 10x3/uL (0.0-0.2); #Eosinophils Less than 0.03 10x3/uL (0.0-0.7); #Monocytes 1.58 10x3/uL (0.11-0.59); #Neutrophils 4.67 10x3/uL (1.40-6.50); %Basophils 0.1 % (0.0-1.0); %Eosinophils 0.0 % (0.0-10.0); %Lymphocytes 17.8 % (21.0-51.0); %Monocytes 19.6 % (0.0-10.0); %Neutrophils 58.0 % (42.0-75.0); Hematocrit 28.2 % (36.0-47.0); Hemoglobin 9.0 g/dL (12.0-16.0); Mean Corpuscular Hemoglobin 31.4 pg (27.0-31.0); Mean Corpuscular Volume 98.3 fL (78.0-98.0); Platelet Count 201 10x3/uL (130-400); Red Blood Cell (RBC) Count 2.87 mill/uL (4.20-5.40); White Blood Cell (WBC) Count 8.05 10x3/uL (4.8-10.8)
[2025-05-18 04:34] LABS: Anion Gap 12 mmol/L (10-20); BUN (Urea Nitrogen) 15 mg/dL (9.8-20.1); Calc. Creatinine Clearance 81 mL/min (70-130); Calcium 8.2 mg/dL (7.8-10.44); Carbon Dioxide 26 mmol/L (23-31); Chloride 109 mmol/L (98-107); Glucose 111 mg/dL (83-110); Potassium 3.3 mmol/L (3.5-5.1); Sodium 144 mmol/L (136-145)
[2025-05-18 04:37] LABS: INR-International Normal Ratio 2.4; Prothrombin Time 26.1 sec (12.0-14.7)
[2025-05-19 00:12] LABS: Potassium 3.7 mmol/L (3.5-5.1)
[2025-05-19 04:25] LABS: INR-International Normal Ratio 2.6; Prothrombin Time 27.7 sec (12.0-14.7)
[2025-05-19 06:27] LABS: #Basophils Less than 0.03 10x3/uL (0.0-0.2); #Eosinophils Less than 0.03 10x3/uL (0.0-0.7); #Monocytes 1.06 10x3/uL (0.11-0.59); #Neutrophils 3.78 10x3/uL (1.40-6.50); %Basophils 0.2 % (0.0-1.0); %Eosinophils 0.0 % (0.0-10.0); %Lymphocytes 22.1 % (21.0-51.0); %Monocytes 16.2 % (0.0-10.0); %Neutrophils 57.8 % (42.0-75.0); Hematocrit 28.7 % (36.0-47.0); Hemoglobin 8.9 g/dL (12.0-16.0); Mean Corpuscular Hemoglobin 31.6 pg (27.0-31.0); Mean Corpuscular Volume 101.8 fL (78.0-98.0); Platelet Count 213 10x3/uL (130-400); Red Blood Cell (RBC) Count 2.82 mill/uL (4.20-5.40); White Blood Cell (WBC) Count 6.53 10x3/uL (4.8-10.8)
[2025-05-19 06:40] LABS: Anion Gap 11 mmol/L (10-20); BUN (Urea Nitrogen) 13 mg/dL (9.8-20.1); Calc. Creatinine Clearance 80 mL/min (70-130); Calcium 8.3 mg/dL (7.8-10.44); Carbon Dioxide 26 mmol/L (23-31); Chloride 108 mmol/L (98-107); Glucose 112 mg/dL (83-110); Potassium 3.5 mmol/L (3.5-5.1); Sodium 141 mmol/L (136-145)
[2025-05-20 03:28] LABS: #Basophils Less than 0.03 10x3/uL (0.0-0.2); #Eosinophils Less than 0.03 10x3/uL (0.0-0.7); #Monocytes 1.17 10x3/uL (0.11-0.59); #Neutrophils 4.07 10x3/uL (1.40-6.50); %Basophils 0.3 % (0.0-1.0); %Eosinophils 0.1 % (0.0-10.0); %Lymphocytes 23.9 % (21.0-51.0); %Monocytes 16.4 % (0.0-10.0); %Neutrophils 57.2 % (42.0-75.0); Hematocrit 30.6 % (36.0-47.0); Hemoglobin 9.7 g/dL (12.0-16.0); Mean Corpuscular Hemoglobin 31.8 pg (27.0-31.0); Mean Corpuscular Volume 100.3 fL (78.0-98.0); Platelet Count 235 10x3/uL (130-400); Red Blood Cell (RBC) Count 3.05 mill/uL (4.20-5.40); White Blood Cell (WBC) Count 7.12 10x3/uL (4.8-10.8)
[2025-05-20 03:39] LABS: INR-International Normal Ratio 2.5; Prothrombin Time 27.4 sec (12.0-14.7)
[2025-05-20 03:46] LABS: Anion Gap 4 mmol/L (10-20); BUN (Urea Nitrogen) 19 mg/dL (9.8-20.1); Calc. Creatinine Clearance 79 mL/min (70-130); Calcium 8.5 mg/dL (7.8-10.44); Carbon Dioxide 28 mmol/L (23-31); Chloride 114 mmol/L (98-107); Glucose 96 mg/dL (83-110); Potassium 3.7 mmol/L (3.5-5.1); Sodium 142 mmol/L (136-145)
[2025-05-21 04:13] LABS: #Basophils Less than 0.03 10x3/uL (0.0-0.2); #Eosinophils Less than 0.03 10x3/uL (0.0-0.7); #Monocytes 0.99 10x3/uL (0.11-0.59); #Neutrophils 3.40 10x3/uL (1.40-6.50); %Basophils 0.0 % (0.0-1.0); %Eosinophils 0.3 % (0.0-10.0); %Lymphocytes 24.4 % (21.0-51.0); %Monocytes 16.3 % (0.0-10.0); %Neutrophils 56.2 % (42.0-75.0); Hematocrit 28.8 % (36.0-47.0); Hemoglobin 8.9 g/dL (12.0-16.0); Mean Corpuscular Hemoglobin 31.6 pg (27.0-31.0); Mean Corpuscular Volume 102.1 fL (78.0-98.0); Platelet Count 256 10x3/uL (130-400); Red Blood Cell (RBC) Count 2.82 mill/uL (4.20-5.40); White Blood Cell (WBC) Count 6.06 10x3/uL (4.8-10.8)
[2025-05-21 04:26] LABS: INR-International Normal Ratio 2.7; Prothrombin Time 28.6 sec (12.0-14.7)
[2025-05-21 04:29] LABS: Anion Gap 11 mmol/L (10-20); BUN (Urea Nitrogen) 18 mg/dL (9.8-20.1); Calc. Creatinine Clearance 74 mL/min (70-130); Calcium 8.3 mg/dL (7.8-10.44); Carbon Dioxide 28 mmol/L (23-31); Chloride 107 mmol/L (98-107); Glucose 108 mg/dL (83-110); Potassium 3.8 mmol/L (3.5-5.1); Sodium 142 mmol/L (136-145)
[2025-05-21 13:17] VITALS: BMI 25.8
[2025-05-22 05:50] LABS: #Basophils Less than 0.03 10x3/uL (0.0-0.2); #Eosinophils 0.03 10x3/uL (0.0-0.7); #Monocytes 0.85 10x3/uL (0.11-0.59); #Neutrophils 3.17 10x3/uL (1.40-6.50); %Basophils 0.2 % (0.0-1.0); %Eosinophils 0.5 % (0.0-10.0); %Lymphocytes 27.4 % (21.0-51.0); %Monocytes 14.7 % (0.0-10.0); %Neutrophils 54.9 % (42.0-75.0); Hematocrit 29.8 % (36.0-47.0); Hemoglobin 9.4 g/dL (12.0-16.0); Mean Corpuscular Hemoglobin 32.0 pg (27.0-31.0); Mean Corpuscular Volume 101.4 fL (78.0-98.0); Platelet Count 279 10x3/uL (130-400); Red Blood Cell (RBC) Count 2.94 mill/uL (4.20-5.40); White Blood Cell (WBC) Count 5.77 10x3/uL (4.8-10.8)
[2025-05-22 05:59] LABS: Anion Gap 12 mmol/L (10-20); BUN (Urea Nitrogen) 14 mg/dL (9.8-20.1); Calc. Creatinine Clearance 81 mL/min (70-130); Calcium 8.9 mg/dL (7.8-10.44); Carbon Dioxide 28 mmol/L (23-31); Chloride 107 mmol/L (98-107); Glucose 94 mg/dL (83-110); Potassium 3.7 mmol/L (3.5-5.1); Sodium 143 mmol/L (136-145)
[2025-05-22 06:00] LABS: INR-International Normal Ratio 2.6; Prothrombin Time 28.2 sec (12.0-14.7)
[2025-05-22] MEDS: predniSONE 20 MG TAB PO SCH (08:30)
[2025-05-22 13:55] VITALS: BP 106/59; TEMP 97.9
== END 2025-05-22 13:56 | DRG 208 ==
LOC: ERS 11:02 → ERHOLD 15:06 → OBSVTOIN 19:17 → CCU 20:35 → IMCU/EMU 05-17 17:51 → T4-B 05-21 13:22
PROVIDERS: ADMIT Family Medicine; ATTEND Internal Medicine
PROC: 5A1945Z Respiratory Ventilation, 24-96 Consecutive Hours (ICD-10-PCS; 2025-05-06)
PROC: 0BH17EZ Insertion of Endotracheal Airway into Trachea, Via Natural or Artificial Opening (ICD-10-PCS; 2025-05-06)
PROC: 5A0935A Assistance with Respiratory Ventilation, Less than 24 Consecutive Hours, High Flow/Velocity Cannula (ICD-10-PCS; 2025-05-08)
PROC: 5A09357 Assistance with Respiratory Ventilation, Less than 24 Consecutive Hours, Continuous Positive Airway Pressure (ICD-10-PCS; 2025-05-09)
PROC: 5A09357 Assistance with Respiratory Ventilation, Less than 24 Consecutive Hours, Continuous Positive Airway Pressure (ICD-10-PCS; 2025-05-10)
PROC: 5A1945Z Respiratory Ventilation, 24-96 Consecutive Hours (ICD-10-PCS; principal; 2025-05-11)
PROC: 4A133R1 Monitoring of Arterial Saturation, Peripheral, Percutaneous Approach (ICD-10-PCS; 2025-05-11)
PROC: 0B9H8ZZ Drainage of Lung Lingula, Via Natural or Artificial Opening Endoscopic (ICD-10-PCS; 2025-05-12)
PROC: 0B948ZZ Drainage of Right Upper Lobe Bronchus, Via Natural or Artificial Opening Endoscopic (ICD-10-PCS; 2025-05-12)
PROC: 0B988ZZ Drainage of Left Upper Lobe Bronchus, Via Natural or Artificial Opening Endoscopic (ICD-10-PCS; 2025-05-12)
PROC: 0B918ZZ Drainage of Trachea, Via Natural or Artificial Opening Endoscopic (ICD-10-PCS; 2025-05-12)
PROC: 3E03329 Introduction of Other Anti-infective into Peripheral Vein, Percutaneous Approach (ICD-10-PCS; 2025-05-15)
DX: J10.08 Influenza due to other identified influenza virus with other specified pneumonia (principal); G93.41 Metabolic encephalopathy; J96.01 Acute respiratory failure with hypoxia; E87.0 Hyperosmolality and hypernatremia; J12.9 Viral pneumonia, unspecified; Z88.8 Allergy status to other drugs, medicaments and biological substances; Z91.0110 Allergy to milk products, unspecified; F32.A Depression, unspecified; E03.9 Hypothyroidism, unspecified; I10 Essential (primary) hypertension; E78.5 Hyperlipidemia, unspecified; I25.10 Atherosclerotic heart disease of native coronary artery without angina pectoris; F41.9 Anxiety disorder, unspecified; K21.9 Gastro-esophageal reflux disease without esophagitis; Z98.890 Other specified postprocedural states; R53.1 Weakness; W19.XXXA Unspecified fall, initial encounter; S05.12XA Contusion of eyeball and orbital tissues, left eye, initial encounter; D64.9 Anemia, unspecified; E87.6 Hypokalemia; Z79.01 Long term (current) use of anticoagulants; R41.0 Disorientation, unspecified; G47.00 Insomnia, unspecified
CPT/HCPCS: 31500; 36415; 36416; 36600; 51702; 70450; 71045; 71260; 72125; 72170; 74230; 80048; 80053; 81001; 82805; 83605; 83880; 84484; 85025; 85610; 85730; 87040; 87070; 87086; 87205; 87428; 93005; 94002; 94003; 94640; 94660; 94760; 96361; 96365; 96367; G0378; J0696; J1200; J1308; J1650; J1940; J2250; J2405; J2704; J2919; J3480; J7070; J7120; J7512; Q9967